=== PATIENT | male | born 1975 | race Caucasian/White ===

== ENCOUNTER 2023-02-09 02:02 | Inpatient (IN) | payer OTHER, SELFPAY ==
[2023-02-09] VITALS (57 sets, daily range): BP systolic 113–191; BP diastolic 64–94; PULSE 82–125; RESP 7–37; TEMP 36.1–40.1; O2SAT 91–99; BMI 41.1; BMI 42.4
[2023-02-09] MEDS: SODIUM CHLORIDE 0.9% 1,000 ML 1000 ML IV (02:46)
[2023-02-09] MEDS: ONDANSETRON 4 MG/2 ML INJ IV (02:46)
--- NOTE | 2023-02-09 02:51 | PC.NURSE ---
I asked patient if he knows what year it is, patient replied yes... it's...... 2025. I asked patient if he knows where he is, he states [email or web address] I asked him where are you at? He replies I dont know.
[2023-02-09 02:53] LABS: Add Manual Diff / Slide Review YES; Hematocrit 41.4 % (41-53); Hemoglobin 14.3 g/dL (13.5-17.5); Mean Corpuscular HGB Conc 34.6 % (30-36); Mean Corpuscular Hemoglobin 30.2 PG (26-34); Mean Corpuscular Volume 87.4 fL (80-100); Platelet Count 125 X10^3/uL (150-400); Red Blood Cell Count 4.73 X10^6/uL (4.5-5.9); Red Cell Distribution Width 13.5 % (11.6-14.8); White Blood Cell Count 14.3 X10^3/uL (4.5-11.0)
--- NOTE | 2023-02-09 02:55 | ED_ITS ---
HPI - Nausea/Vomiting/Diarrhea General Chief complaint: Nausea/Vomiting/Diarrhea Stated complaint: fever/vomiting/confusion Time Seen by Provider: 02/09/23 02:18 Source: patient and family Mode of arrival: Wheelchair History of Present Illness HPI Narrative: 47-year-old male nonsmoker without chronic medical history presents with his in the chief complaint of 1-2 days of worsening fever along with nausea, vomiting and now confusion tonight. They are visiting from [place] and denies any history of the same. He denies any headache, blurred vision, runny nose but did have some sore throat. He has no neck pain, chest pain or shortness of breath. He is had no cough. He denies abdominal pain but has had multiple episodes of nausea, vomiting and diarrhea. He denies recent antibiotics or exposure to bad food. states that it is not uncommon for him to vomit but confusion is something new. Related Data Home Medications Medication Instructions Recorded Confirmed venlafaxine 150 mg 150 mg PO DAILY 02/09/23 02/09/23 capsule,extended release 24 hr Allergies Allergy/AdvReac Type Severity Reaction Status Date / Time bupropion [From Wellbutrin] AdvReac Depression Verified 02/09/23 08:49 Penicillins AdvReac Nightmare Verified 02/09/23 08:54 Review of Systems Review of Systems Narrative: GENERAL: See HPI HEENT: See HPI RESPIRATORY: Denies dyspnea, cough, wheezing, hemoptysis, sputum. CARDIOVASCULAR: Denies chest pain, palpitations, orthopnea, edema, GASTROINTESTINAL: See HPI : Denies dysuria, frequency, incontinence, hematuria, urinary retention. MUSCULOSKELETAL: denies weakness, joint pain, or bony pain SKIN: Denies rash, skin lesions, or other NEUROLOGIC: Denies weakness, headache, numbness, change in speech, confusion, seizures, incoordination. PSYCHIATRIC: No concerning psychosocial issues. 12 point review of systems is negative except for those stated above Patient History Medical History Depression Family History Mother COVID Father No problems noted. Social History marital status: household members: spouse and children Smoking Status: Never smoker Smoking Status: Never smoker alcohol intake frequency: a few times a week Alcohol type: beer and wine Substance Use Type: does not use Exam Narrative Exam Narrative: GENERAL: [47] year old patient appears stated age. Well-developed patient, in mild distress. GCS 14 (confused) HEAD: Atraumatic. Normocephalic. EYES: Pupils equal round and reactive. Extraocular motions intact. No scleral icterus. No injection or drainage. ENT: Nose without bleeding, purulent drainage. Throat without erythema, tonsillar hypertrophy or exudate. Airway patent. NECK: Trachea midline. Non tender CARDIOVASCULAR: Tachycardic but regular rhythm without murmurs, gallops, or rubs. RESPIRATORY: Clear to auscultation. Breath sounds equal bilaterally. No wheezes, rales, or rhonchi. GASTROINTESTINAL: Abdomen soft, non-tender, nondistended. Bowel sounds present EXTREMITIES: No edema or joint tenderness. BACK: Nontender without deformity or crepitance. No flank tenderness. NEURO: Cranial nerves 2-12 grossly intact. SKIN: No rash or erythema of visible areas Initial Vital Signs Initial Vital Signs: Vital Signs Temperature 101.8 F H 02/09/23 02:17 Pulse Rate 113 H 02/09/23 02:17 Respiratory Rate 20 02/09/23 02:17 Blood Pressure 139/76 02/09/23 02:17 Pulse Oximetry 96 02/09/23 02:17 Oxygen Delivery Method Room Air 02/09/23 02:17 Course Orders Ordered: Discontinued Medications Acetaminophen (Acetaminophen 325 Mg Tablet) 975 mg PO Q6H PRN PRN Reason: Fever/Mild Pain (1-3) Last Admin: 02/10/23 03:20 Dose: 975 mg Documented By: Admin: 02/09/23 11:06 Dose: 975 mg Documented By: HILLARY Hydrocodone Bitart/Acetaminophen (Hydrocodone/Acet 5/325 Tablet) 2 tab PO Q4H PRN PRN Reason: Pain, Severe (5-10) Last Admin: 02/09/23 15:49 Dose: 2 tab Documented By: TYESHA Hydrocodone Bitart/Acetaminophen (Hydrocodone/Acet 5/325 Tablet) 1 tab PO Q4HR PRN PRN Reason: Pain, Moderate (4-6) Last Admin: 02/10/23 11:46 Dose: 1 tab Documented By: Admin: 02/09/23 23:00 Dose: 1 tab Documented By: TRUE Dextrose (Dextrose 50 % In Water 25 Gm/50 Ml Syringe) 25 gm IV PRN PRN PRN Reason: Hypoglycemia Enoxaparin Sodium (Enoxaparin 40 Mg/0.4 Ml Syringe) 40 mg SUBCUT DAILY [facility] Enoxaparin Sodium (Enoxaparin 40 Mg/0.4 Ml Syringe) 40 mg SUBCUT BID [facility] Last Admin: 02/10/23 09:04 Dose: 40 mg Documented By: Admin: 02/09/23 21:06 Dose: 40 mg Documented By: Admin: 02/09/23 09:06 Dose: 40 mg Documented By: LEV Hydromorphone HCl (Hydromorphone 0.5 Mg Inj) 0.5 mg IV Q4HR [facility] Last Admin: 02/09/23 12:45 Dose: Not Given Documented By: Admin: 02/09/23 09:07 Dose: Not Given Documented By: LEV Hydromorphone HCl (Hydromorphone 2 Mg Tablet) 2 mg PO Q3H PRN PRN Reason: Pain, Severe (7-10) Last Admin: 02/10/23 12:09 Dose: 2 mg Documented By: TYESHA Sodium Chloride (Normal Saline 0.9%) 1,000 mls @ 1,000 mls/hr IV BOLUS ONE Stop: 02/09/23 03:38 Last Infusion: 02/09/23 03:44 Dose: 0 mls/hr Documented By: Admin: 02/09/23 02:46 Dose: 1,000 mls/hr Documented By: ARNAUD Sodium Chloride (Normal Saline 0.9%) 2,259 mls @ 753 mls/hr 30 ml/kg infuse over 3 hr (2259 ml) IV NOW ONE Stop: 02/09/23 05:51 Last Infusion: 02/09/23 06:00 Dose: 0 mls/hr Documented By: Admin: 02/09/23 03:06 Dose: 753 mls/hr Documented By: ARNAUD Ceftriaxone Sodium 2,000 mg/ (Sodium Chloride) 100 mls @ 200 mls/hr IV NOW ONE Stop: 02/09/23 03:30 Last Infusion: 02/09/23 04:05 Dose: 0 mls/hr Documented By: Admin: 02/09/23 03:43 Dose: 200 mls/hr Documented By: GC Sodium Chloride (Normal Saline 0.9%) 1,000 mls @ 150 mls/hr IV CONT [facility] Last Admin: 02/10/23 03:20 Dose: 150 mls/hr Documented By: Infusion: 02/10/23 03:20 Dose: 150 mls/hr Documented By: Admin: 02/09/23 20:52 Dose: 150 mls/hr Documented By: Infusion: 02/09/23 20:48 Dose: 150 mls/hr Documented By: Admin: 02/09/23 14:07 Dose: 150 mls/hr Documented By: Infusion: 02/09/23 13:12 Dose: 150 mls/hr Documented By: Admin: 02/09/23 06:31 Dose: 150 mls/hr Documented By: GC Piperacillin Sod/Tazobactam (Sod 4.5 gm/ Sodium Chloride) 100 mls @ 200 mls/hr IV NOW ONE Stop: 02/09/23 08:01 Last Infusion: 02/09/23 09:39 Dose: 0 mls/hr Documented By: Admin: 02/09/23 08:54 Dose: 200 mls/hr Documented By: LEV Piperacillin Sod/Tazobactam (Sod 3.375 gm/ Sodium Chloride) 100 mls @ 25 mls/hr IV Q8H [facility] Last Admin: 02/09/23 11:05 Dose: 25 mls/hr Documented By: HILLARY Ceftriaxone Sodium 2,000 mg/ (Sodium Chloride) 100 mls @ 200 mls/hr IV Q24H [facility] Last Admin: 02/10/23 05:00 Dose: 200 mls/hr Documented By: TRUE Vancomycin HCl 3,000 mg/ (Sodium Chloride) 500 mls @ 166.667 mls/hr IV NOW ONE Stop: 02/09/23 14:59 Last Infusion: 02/09/23 15:27 Dose: 0 mls/hr Documented By: Admin: 02/09/23 12:19 Dose: 166.667 mls/hr Documented By: TYESHA Vancomycin HCl/Dextrose (Vancomycin) 1,500 mg in 300 mls @ 200 mls/hr IV Q12H [facility] Last Infusion: 02/10/23 05:00 Dose: 0 mls/hr Documented By: Admin: 02/10/23 00:29 Dose: 200 mls/hr Documented By: TRUE Insulin Human Lispro (Insulin Lispro 100 Unit/Ml 3ml Vial) 0 unit SUBCUT [facility]; Protocol Last Admin: 02/10/23 16:46 Dose: Not Given Documented By: Admin: 02/10/23 12:01 Dose: Not Given Documented By: Admin: 02/10/23 07:45 Dose: Not Given Documented By: Admin: 02/09/23 21:03 Dose: Not Given Documented By: Admin: 02/09/23 17:14 Dose: Not Given Documented By: Admin: 02/09/23 12:42 Dose: Not Given Documented By: Admin: 02/09/23 08:54 Dose: 1 unit Documented By: LEV Co-signed By: SIMON Ketorolac Tromethamine (Ketorolac 30 Mg/Ml Vial) 15 mg IV NOW ONE Stop: 02/09/23 02:53 Last Admin: 02/09/23 03:04 Dose: 15 mg Documented By: ARNAUD Ketorolac Tromethamine (Ketorolac 10 Mg Tablet) 10 mg PO Q6HR PRN PRN Reason: Pain, Mild (1-3) Stop: 02/14/23 05:52 Lidocaine HCl (Lidocaine 1% (Pf) 5 Ml) 4 ml INJ NOW ONE Stop: 02/10/23 15:35 Last Admin: 02/10/23 16:05 Dose: 4 ml Documented By: TYESHA Lidocaine/Epinephrine (Lidocaine 1% W/Epi) 4 ml INJ INTRA-OP ONE Stop: 02/10/23 15:32 Last Admin: 02/10/23 15:58 Dose: Not Given Documented By: TYESHA Magnesium Chloride (Magnesium Chloride 64 Mg Tablet) 128 mg PO NOW ONE Stop: 02/09/23 08:46 Last Admin: 02/09/23 09:05 Dose: 128 mg Documented By: LEV Naloxone HCl (Naloxone 0.4 Mg/Ml Vial) 0.2 mg IV Q2MIN PRN PRN Reason: Opiate Reversal Ondansetron HCl (Ondansetron 4 Mg/2 Ml Inj) 4 mg IV NOW ONE Stop: 02/09/23 02:40 Last Admin: 02/09/23 02:46 Dose: 4 mg Documented By: ARNAUD Ondansetron HCl (Ondansetron 4 Mg/2 Ml Inj) 4 mg IV Q4HR PRN PRN Reason: Nausea And Vomiting Potassium Chloride (Potassium Chloride 20 Meq Tab) 40 meq PO NOW ONE Stop: 02/10/23 08:16 Last Admin: 02/10/23 09:04 Dose: 40 meq Documented By: TYESHA Sertraline HCl (Sertraline 50 Mg Tablet) 150 mg PO DAILY [facility] Vancomycin HCl (Vancomycin Per Pharmacy) 1 request MISC NOW ONE Stop: 02/09/23 11:42 Venlafaxine HCl (Venlafaxine Er 75 Mg Cap) 150 mg PO DAILY [facility] Last Admin: 02/10/23 09:04 Dose: 150 mg Documented By: Admin: 02/09/23 09:07 Dose: 150 mg Documented By: LEV Vital Signs Vital signs: Vital Signs - 8 hr 02/09/23 02:17 02/09/23 02:35 02/09/23 02:35 Temperature 101.8 F H 104.1 F H Pulse Rate 113 H 101 H Respiratory Rate 20 16 Blood Pressure 139/76 136/82 Pulse Oximetry 96 98 Oxygen Delivery Method Room Air 02/09/23 03:04 02/09/23 03:00 02/09/23 03:12 Temperature 104.1 F H Pulse Rate 110 H Respiratory Rate 19 Blood Pressure 125/74 Pulse Oximetry 98 Oxygen Delivery Method 02/09/23 03:12 02/09/23 03:30 02/09/23 03:30 Temperature Pulse Rate 108 H 108 H Respiratory Rate 20 26 H Blood Pressure 123/85 Pulse Oximetry 99 98 Oxygen Delivery Method 02/09/23 04:00 Temperature Pulse Rate 111 H Respiratory Rate 22 Blood Pressure Pulse Oximetry 96 Oxygen Delivery Method MDM - Nausea/Vomiting/Diarrhea Lab Data 02/10/23 04:31 02/10/23 04:31 Labs: Lab Results 02/09/23 02/09/23 02/09/23 Range/Units 02:35 02:35 02:35 WBC 14.3 H (4.5-11.0) X10^3/uL RBC 4.73 (4.5-5.9) X10^6/uL Hgb 14.3 (13.5-17.5) g/dL Hct 41.4 (41-53) % MCV 87.4 (80-100) fL MCH 30.2 (26-34) PG MCHC 34.6 (30-36) % RDW 13.5 (11.6-14.8) % Plt Count 125 L (150-400) X10^3/uL Neut % (Auto) Not Reportable Lymph % (Auto) Not Reportable Wilkinson % (Auto) Not Reportable Eos % (Auto) Not Reportable Baso % (Auto) Not Reportable Lymph # (Auto) Not Reportable Wilkinson # (Auto) Not Reportable Baso # (Auto) Not Reportable Total Counted 100 Seg Neutrophils % 60.0 (38-70) % Band Neutrophils % 32.0 H (3-7) % Lymphocytes % (Manual) 1.0 L (25-45) % Monocytes % (Manual) 4.0 (2-11) % Metamyelocytes % 1.0 H (-0) % Myelocytes % 2.0 H (-0) % Neutrophils # (Manual) 11149 H (2320-1578) /uL RBC Morphology Normal morphology ESR (0-15) MM/HR PT (10.1-12.7) SECONDS INR (0.9-1.3) Sodium 126 L (137-145) mmol/L Potassium 3.8 (3.4-5.1) mmol/L Chloride 88 L (98-107) mmol/L Carbon Dioxide 26 (22-32) mmol/L BUN 24 H (9-20) mg/dL Creatinine 1.21 (0.66-1.25) mg/dL Estimated GFR > 60 (>60) mL/min BUN/Creatinine Ratio 19.8 (6-22) Glucose 183 H (70-100) mg/dL Hgb A1c (Ref Lab) (4.8-5.6) % Estim Average Glucose (.) mg/dL Lactate 3.0 H (0.7-2.1) mmol/L Calcium 8.6 (8.4-10.2) mg/dL Magnesium (1.6-2.3) mg/dL Total Bilirubin 1.2 (0.2-1.3) mg/dL AST 38 (17-59) IU/L ALT 34 (<50) IU/L Alkaline Phosphatase 59 (38-126) U/L C-Reactive Protein (<1.0) mg/dL Total Protein 8.0 (6.3-8.2) g/dL Albumin 4.2 (3.5-5.0) g/dL Globulin 3.8 (1.7-4.1) g/dL Albumin/Globulin Ratio 1.1 (1.0-2.8) Urine RBC (0-5/HPF) Urine WBC (0-5/HPF) Amorphous Sediment Urine Bacteria (None) Granular Casts (None) Micro UA Comment CSF Tube Number CSF Volume CSF Appearance (Clear) CSF Color (Colorless) CSF WBC (0-5) MONO/uL CSF RBC RBC /uL CSF Mononuclear WBCs % CSF Polynuclear WBCs % CSF Glucose (40-70) mg/dL CSF Total Protein (12-60) mg/dL CSF C.neoform/gat PCR (Not Detect) CSF CMV DNA (PCR) (Not Detect) CSF Enterovirus (PCR) (Not Detect) CSF E. coli (PCR) (Not Detect) CSF H. influenzae (PCR) (Not Detect) CSF HSV I (PCR) (Not Detect) CSF HSV II (PCR) (Not Detect) CSF HHV 6 (PCR) (Not Detect) CSF L.monocytogenes PCR (Not Detect) CSF N. meningitidis PCR (Not Detect) CSF Parechovirus (PCR) (Not Detect) CSF S. agalactiae (PCR) (Not Detect) CSF S. pneumoniae (PCR) (Not Detect) CSF VZV (PCR) (Not Detecte) U Opiates 300ng/mL cut (Negative) Ur Oxycodone Screen (Negative) Urine Methadone Screen (Negative) Ur Barbiturates Screen (Negative) U Tricyclic Antidepress (Negative) Ur Phencyclidine Scrn (Negative) Ur Amphetamines Screen (Negative) U Methamphetamines Scrn (Negative) Ur MDMA Scrn (Ecstasy) (Negative) U Benzodiazepines Scrn (Negative) Urine Cocaine Screen (Negative) U Marijuana (THC) Screen (Negative) Ethyl Alcohol ( - 10) mg/dL A.calcoaceticus-baumannii cmplx PCR (Not Detect) Chlamy pneumoniae PCR (Not Detect) Adenovirus (PCR) (Not Detect) Bacteroides fragilis (Not Detect) B. pertussis DNA (PCR) (Not Detecte) B.parapertussis DNA PCR (Not Detecte) Meaghan albicans (PCR) (Not Detect) Meaghan auris (PCR) (Not Detect) C. glabrata (PCR) (Not Detect) C. krusei (PCR) (Not Detect) C. parapsilosis (PCR) (Not Detect) C. tropicalis (PCR) (Not Detect) Coronavirus OC43 (PCR) (Not Detect) Coronavirus HKU1 (PCR) (Not Detect) Coronavirus 229E (PCR) (Not Detect) SARS-CoV-2 (PCR) (Not Detecte) Coronavirus NL63 (PCR) (Not Detect) C. neoform/gattii (PCR) (Not Detect) Enterobacterales (PCR) (Not Detect) E. cloacae complex PCR (Not Detect) Enterococc faecalis PCR (Not Detect) Enterococc faecium PCR (Not Detect) E. coli (PCR) (Not Detect) H. influenzae (PCR) (Not Detect) Human Metapneumovir PCR (Not Detect) Influenza Type A (PCR) (Not Detect) Influenza Type B (PCR) (Not Detect) Klebsiella aerogenes (PCR) (Not Detect) Klebsiella oxytoca PCR (Not Detect) Klebsiella pneumoniae (Not Detect) List. monocytogenes PCR (Not Detect) M. pneumoniae (PCR) (Not Detect) N. meningitidis (PCR) (Not Detect) Parainfluenza 1 (PCR) (Not Detect) Parainfluenza 2 (PCR) (Not Detect) Parainfluenza 3 (PCR) (Not Detect) Parainfluenza 4 (PCR) (Not Detect) Proteus species (PCR) (Not Detect) RSV (PCR) (Not Detect) Entero/Rhino (PCR) (Not Detect) Salmonella spp. (PCR) (Not Detect) Serratia marcescens PCR (Not Detect) Staphylococcus sp PCR (Not Detect) Staph aureus (PCR) (Not Detect) Staph epidermidis (PCR) (Not Detect) Staph lugdunensis PCR (Not Detect) S. maltophilia (PCR) (Not Detect) Streptococcus sp PCR (Not Detect) Group A Strep (PCR) (Not Detect) Strep agalactiae (PCR) (Not Detect) Strep pneumoniae (PCR) (Not Detect) P. aeruginosa (PCR) (Not Detect) 02/09/23 02/09/23 02/09/23 Range/Units 02:35 02:35 02:35 WBC (4.5-11.0) X10^3/uL RBC (4.5-5.9) X10^6/uL Hgb (13.5-17.5) g/dL Hct (41-53) % MCV (80-100) fL MCH (26-34) PG MCHC (30-36) % RDW (11.6-14.8) % Plt Count (150-400) X10^3/uL Neut % (Auto) Lymph % (Auto) Wilkinson % (Auto) Eos % (Auto) Baso % (Auto) Lymph # (Auto) Wilkinson # (Auto) Baso # (Auto) Total Counted Seg Neutrophils % (38-70) % Band Neutrophils % (3-7) % Lymphocytes % (Manual) (25-45) % Monocytes % (Manual) (2-11) % Metamyelocytes % (-0) % Myelocytes % (-0) % Neutrophils # (Manual) (6346-1987) /uL RBC Morphology ESR (0-15) MM/HR PT (10.1-12.7) SECONDS INR (0.9-1.3) Sodium (137-145) mmol/L Potassium (3.4-5.1) mmol/L Chloride (98-107) mmol/L Carbon Dioxide (22-32) mmol/L BUN (9-20) mg/dL Creatinine (0.66-1.25) mg/dL Estimated GFR (>60) mL/min BUN/Creatinine Ratio (6-22) Glucose (70-100) mg/dL Hgb A1c (Ref Lab) 5.9 H (4.8-5.6) % Estim Average Glucose 123 (.) mg/dL Lactate (0.7-2.1) mmol/L Calcium (8.4-10.2) mg/dL Magnesium (1.6-2.3) mg/dL Total Bilirubin (0.2-1.3) mg/dL AST (17-59) IU/L ALT (<50) IU/L Alkaline Phosphatase (38-126) U/L C-Reactive Protein 42.9 H (<1.0) mg/dL Total Protein (6.3-8.2) g/dL Albumin (3.5-5.0) g/dL Globulin (1.7-4.1) g/dL Albumin/Globulin Ratio (1.0-2.8) Urine RBC (0-5/HPF) Urine WBC (0-5/HPF) Amorphous Sediment Urine Bacteria (None) Granular Casts (None) Micro UA Comment CSF Tube Number CSF Volume CSF Appearance (Clear) CSF Color (Colorless) CSF WBC (0-5) MONO/uL CSF RBC RBC /uL CSF Mononuclear WBCs % CSF Polynuclear WBCs % CSF Glucose (40-70) mg/dL CSF Total Protein (12-60) mg/dL CSF C.neoform/gat PCR (Not Detect) CSF CMV DNA (PCR) (Not Detect) CSF Enterovirus (PCR) (Not Detect) CSF E. coli (PCR) (Not Detect) CSF H. influenzae (PCR) (Not Detect) CSF HSV I (PCR) (Not Detect) CSF HSV II (PCR) (Not Detect) CSF HHV 6 (PCR) (Not Detect) CSF L.monocytogenes PCR (Not Detect) CSF N. meningitidis PCR (Not Detect) CSF Parechovirus (PCR) (Not Detect) CSF S. agalactiae (PCR) (Not Detect) CSF S. pneumoniae (PCR) (Not Detect) CSF VZV (PCR) (Not Detecte) U Opiates 300ng/mL cut (Negative) Ur Oxycodone Screen (Negative) Urine Methadone Screen (Negative) Ur Barbiturates Screen (Negative) U Tricyclic Antidepress (Negative) Ur Phencyclidine Scrn (Negative) Ur Amphetamines Screen (Negative) U Methamphetamines Scrn (Negative) Ur MDMA Scrn (Ecstasy) (Negative) U Benzodiazepines Scrn (Negative) Urine Cocaine Screen (Negative) U Marijuana (THC) Screen (Negative) Ethyl Alcohol < 10 ( - 10) mg/dL A.calcoaceticus-baumannii cmplx PCR (Not Detect) Chlamy pneumoniae PCR (Not Detect) Adenovirus (PCR) (Not Detect) Bacteroides fragilis (Not Detect) B. pertussis DNA (PCR) (Not Detecte) B.parapertussis DNA PCR (Not Detecte) Meaghan albicans (PCR) (Not Detect) Meaghan auris (PCR) (Not Detect) C. glabrata (PCR) (Not Detect) C. krusei (PCR) (Not Detect) C. parapsilosis (PCR) (Not Detect) C. tropicalis (PCR) (Not Detect) Coronavirus OC43 (PCR) (Not Detect) Coronavirus HKU1 (PCR) (Not Detect) Coronavirus 229E (PCR) (Not Detect) SARS-CoV-2 (PCR) (Not Detecte) Coronavirus NL63 (PCR) (Not Detect) C. neoform/gattii (PCR) (Not Detect) Enterobacterales (PCR) (Not Detect) E. cloacae complex PCR (Not Detect) Enterococc faecalis PCR (Not Detect) Enterococc faecium PCR (Not Detect) E. coli (PCR) (Not Detect) H. influenzae (PCR) (Not Detect) Human Metapneumovir PCR (Not Detect) Influenza Type A (PCR) (Not Detect) Influenza Type B (PCR) (Not Detect) Klebsiella aerogenes (PCR) (Not Detect) Klebsiella oxytoca PCR (Not Detect) Klebsiella pneumoniae (Not Detect) List. monocytogenes PCR (Not Detect) M. pneumoniae (PCR) (Not Detect) N. meningitidis (PCR) (Not Detect) Parainfluenza 1 (PCR) (Not Detect) Parainfluenza 2 (PCR) (Not Detect) Parainfluenza 3 (PCR) (Not Detect) Parainfluenza 4 (PCR) (Not Detect) Proteus species (PCR) (Not Detect) RSV (PCR) (Not Detect) Entero/Rhino (PCR) (Not Detect) Salmonella spp. (PCR) (Not Detect) Serratia marcescens PCR (Not Detect) Staphylococcus sp PCR (Not Detect) Staph aureus (PCR) (Not Detect) Staph epidermidis (PCR) (Not Detect) Staph lugdunensis PCR (Not Detect) S. maltophilia (PCR) (Not Detect) Streptococcus sp PCR (Not Detect) Group A Strep (PCR) (Not Detect) Strep agalactiae (PCR) (Not Detect) Strep pneumoniae (PCR) (Not Detect) P. aeruginosa (PCR) (Not Detect) 02/09/23 02/09/23 02/09/23 Range/Units 02:35 02:35 02:35 WBC (4.5-11.0) X10^3/uL RBC (4.5-5.9) X10^6/uL Hgb (13.5-17.5) g/dL Hct (41-53) % MCV (80-100) fL MCH (26-34) PG MCHC (30-36) % RDW (11.6-14.8) % Plt Count (150-400) X10^3/uL Neut % (Auto) Lymph % (Auto) Wilkinson % (Auto) Eos % (Auto) Baso % (Auto) Lymph # (Auto) Wilkinson # (Auto) Baso # (Auto) Total Counted Seg Neutrophils % (38-70) % Band Neutrophils % (3-7) % Lymphocytes % (Manual) (25-45) % Monocytes % (Manual) (2-11) % Metamyelocytes % (-0) % Myelocytes % (-0) % Neutrophils # (Manual) ([id number]) /uL RBC Morphology ESR (0-15) MM/HR PT 17.2 H (10.1-12.7) SECONDS INR 1.5 H (0.9-1.3) Sodium (137-145) mmol/L Potassium (3.4-5.1) mmol/L Chloride (98-107) mmol/L Carbon Dioxide (22-32) mmol/L BUN (9-20) mg/dL Creatinine (0.66-1.25) mg/dL Estimated GFR (>60) mL/min BUN/Creatinine Ratio (6-22) Glucose (70-100) mg/dL Hgb A1c (Ref Lab) (4.8-5.6) % Estim Average Glucose (.) mg/dL Lactate (0.7-2.1) mmol/L Calcium (8.4-10.2) mg/dL Magnesium 1.6 (1.6-2.3) mg/dL Total Bilirubin (0.2-1.3) mg/dL AST (17-59) IU/L ALT (<50) IU/L Alkaline Phosphatase (38-126) U/L C-Reactive Protein (<1.0) mg/dL Total Protein (6.3-8.2) g/dL Albumin (3.5-5.0) g/dL Globulin (1.7-4.1) g/dL Albumin/Globulin Ratio (1.0-2.8) Urine RBC (0-5/HPF) Urine WBC (0-5/HPF) Amorphous Sediment Urine Bacteria (None) Granular Casts (None) Micro UA Comment CSF Tube Number CSF Volume CSF Appearance (Clear) CSF Color (Colorless) CSF WBC (0-5) MONO/uL CSF RBC RBC /uL CSF Mononuclear WBCs % CSF Polynuclear WBCs % CSF Glucose (40-70) mg/dL CSF Total Protein (12-60) mg/dL CSF C.neoform/gat PCR (Not Detect) CSF CMV DNA (PCR) (Not Detect) CSF Enterovirus (PCR) (Not Detect) CSF E. coli (PCR) (Not Detect) CSF H. influenzae (PCR) (Not Detect) CSF HSV I (PCR) (Not Detect) CSF HSV II (PCR) (Not Detect) CSF HHV 6 (PCR) (Not Detect) CSF L.monocytogenes PCR (Not Detect) CSF N. meningitidis PCR (Not Detect) CSF Parechovirus (PCR) (Not Detect) CSF S. agalactiae (PCR) (Not Detect) CSF S. pneumoniae (PCR) (Not Detect) CSF VZV (PCR) (Not Detecte) U Opiates 300ng/mL cut (Negative) Ur Oxycodone Screen (Negative) Urine Methadone Screen (Negative) Ur Barbiturates Screen (Negative) U Tricyclic Antidepress (Negative) Ur Phencyclidine Scrn (Negative) Ur Amphetamines Screen (Negative) U Methamphetamines Scrn (Negative) Ur MDMA Scrn (Ecstasy) (Negative) U Benzodiazepines Scrn (Negative) Urine Cocaine Screen (Negative) U Marijuana (THC) Screen (Negative) Ethyl Alcohol ( - 10) mg/dL A.calcoaceticus-baumannii cmplx PCR Not detected (Not Detect) Chlamy pneumoniae PCR (Not Detect) Adenovirus (PCR) (Not Detect) Bacteroides fragilis Not detected (Not Detect) B. pertussis DNA (PCR) (Not Detecte) B.parapertussis DNA PCR (Not Detecte) Meaghan albicans (PCR) Not detected (Not Detect) Meaghan auris (PCR) Not detected (Not Detect) C. glabrata (PCR) Not detected (Not Detect) C. krusei (PCR) Not detected (Not Detect) C. parapsilosis (PCR) Not detected (Not Detect) C. tropicalis (PCR) Not detected (Not Detect) Coronavirus OC43 (PCR) (Not Detect) Coronavirus HKU1 (PCR) (Not Detect) Coronavirus 229E (PCR) (Not Detect) SARS-CoV-2 (PCR) (Not Detecte) Coronavirus NL63 (PCR) (Not Detect) C. neoform/gattii (PCR) Not detected (Not Detect) Enterobacterales (PCR) Not detected (Not Detect) E. cloacae complex PCR Not detected (Not Detect) Enterococc faecalis PCR Not detected (Not Detect) Enterococc faecium PCR Not detected (Not Detect) E. coli (PCR) Not detected (Not Detect) H. influenzae (PCR) Not detected (Not Detect) Human Metapneumovir PCR (Not Detect) Influenza Type A (PCR) (Not Detect) Influenza Type B (PCR) (Not Detect) Klebsiella aerogenes (PCR) Not detected (Not Detect) Klebsiella oxytoca PCR Not detected (Not Detect) Klebsiella pneumoniae Not detected (Not Detect) List. monocytogenes PCR Not detected (Not Detect) M. pneumoniae (PCR) (Not Detect) N. meningitidis (PCR) Not detected (Not Detect) Parainfluenza 1 (PCR) (Not Detect) Parainfluenza 2 (PCR) (Not Detect) Parainfluenza 3 (PCR) (Not Detect) Parainfluenza 4 (PCR) (Not Detect) Proteus species (PCR) Not detected (Not Detect) RSV (PCR) (Not Detect) Entero/Rhino (PCR) (Not Detect) Salmonella spp. (PCR) Not detected (Not Detect) Serratia marcescens PCR Not detected (Not Detect) Staphylococcus sp PCR Not detected (Not Detect) Staph aureus (PCR) Not detected (Not Detect) Staph epidermidis (PCR) Not detected (Not Detect) Staph lugdunensis PCR Not detected (Not Detect) S. maltophilia (PCR) Not detected (Not Detect) Streptococcus sp PCR Detected H (Not Detect) Group A Strep (PCR) Detected H (Not Detect) Strep agalactiae (PCR) Not detected (Not Detect) Strep pneumoniae (PCR) Not detected (Not Detect) P. aeruginosa (PCR) Not detected (Not Detect) 02/09/23 02/09/23 02/09/23 Range/Units 03:05 03:22 03:22 WBC (4.5-11.0) X10^3/uL RBC (4.5-5.9) X10^6/uL Hgb (13.5-17.5) g/dL Hct (41-53) % MCV (80-100) fL MCH (26-34) PG MCHC (30-36) % RDW (11.6-14.8) % Plt Count (150-400) X10^3/uL Neut % (Auto) Lymph % (Auto) Wilkinson % (Auto) Eos % (Auto) Baso % (Auto) Lymph # (Auto) Wilkinson # (Auto) Baso # (Auto) Total Counted Seg Neutrophils % (38-70) % Band Neutrophils % (3-7) % Lymphocytes % (Manual) (25-45) % Monocytes % (Manual) (2-11) % Metamyelocytes % (-0) % Myelocytes % (-0) % Neutrophils # (Manual) (7657-8250) /uL RBC Morphology ESR (0-15) MM/HR PT (10.1-12.7) SECONDS INR (0.9-1.3) Sodium (137-145) mmol/L Potassium (3.4-5.1) mmol/L Chloride (98-107) mmol/L Carbon Dioxide (22-32) mmol/L BUN (9-20) mg/dL Creatinine (0.66-1.25) mg/dL Estimated GFR (>60) mL/min BUN/Creatinine Ratio (6-22) Glucose (70-100) mg/dL Hgb A1c (Ref Lab) (4.8-5.6) % Estim Average Glucose (.) mg/dL Lactate (0.7-2.1) mmol/L Calcium (8.4-10.2) mg/dL Magnesium (1.6-2.3) mg/dL Total Bilirubin (0.2-1.3) mg/dL AST (17-59) IU/L ALT (<50) IU/L Alkaline Phosphatase (38-126) U/L C-Reactive Protein (<1.0) mg/dL Total Protein (6.3-8.2) g/dL Albumin (3.5-5.0) g/dL Globulin (1.7-4.1) g/dL Albumin/Globulin Ratio (1.0-2.8) Urine RBC 0-1/hpf (0-5/HPF) Urine WBC None seen (0-5/HPF) Amorphous Sediment 3+ Urine Bacteria Occasional (0-1) (None) Granular Casts 1-5/lpf (None) Micro UA Comment * CSF Tube Number CSF Volume CSF Appearance (Clear) CSF Color (Colorless) CSF WBC (0-5) MONO/uL CSF RBC RBC /uL CSF Mononuclear WBCs % CSF Polynuclear WBCs % CSF Glucose (40-70) mg/dL CSF Total Protein (12-60) mg/dL CSF C.neoform/gat PCR (Not Detect) CSF CMV DNA (PCR) (Not Detect) CSF Enterovirus (PCR) (Not Detect) CSF E. coli (PCR) (Not Detect) CSF H. influenzae (PCR) (Not Detect) CSF HSV I (PCR) (Not Detect) CSF HSV II (PCR) (Not Detect) CSF HHV 6 (PCR) (Not Detect) CSF L.monocytogenes PCR (Not Detect) CSF N. meningitidis PCR (Not Detect) CSF Parechovirus (PCR) (Not Detect) CSF S. agalactiae (PCR) (Not Detect) CSF S. pneumoniae (PCR) (Not Detect) CSF VZV (PCR) (Not Detecte) U Opiates 300ng/mL cut Negative (Negative) Ur Oxycodone Screen Negative (Negative) Urine Methadone Screen Negative (Negative) Ur Barbiturates Screen Negative (Negative) U Tricyclic Antidepress Negative (Negative) Ur Phencyclidine Scrn Negative (Negative) Ur Amphetamines Screen Negative (Negative) U Methamphetamines Scrn Negative (Negative) Ur MDMA Scrn (Ecstasy) Negative (Negative) U Benzodiazepines Scrn Negative (Negative) Urine Cocaine Screen Negative (Negative) U Marijuana (THC) Screen Negative (Negative) Ethyl Alcohol ( - 10) mg/dL A.calcoaceticus-baumannii cmplx PCR (Not Detect) Chlamy pneumoniae PCR Not detected (Not Detect) Adenovirus (PCR) Not detected (Not Detect) Bacteroides fragilis (Not Detect) B. pertussis DNA (PCR) Not detected (Not Detecte) B.parapertussis DNA PCR Not detected (Not Detecte) Meaghan albicans (PCR) (Not Detect) Meaghan auris (PCR) (Not Detect) C. glabrata (PCR) (Not Detect) C. krusei (PCR) (Not Detect) C. parapsilosis (PCR) (Not Detect) C. tropicalis (PCR) (Not Detect) Coronavirus OC43 (PCR) Not detected (Not Detect) Coronavirus HKU1 (PCR) Not detected (Not Detect) Coronavirus 229E (PCR) Not detected (Not Detect) SARS-CoV-2 (PCR) Not detected (Not Detecte) Coronavirus NL63 (PCR) Not detected (Not Detect) C. neoform/gattii (PCR) (Not Detect) Enterobacterales (PCR) (Not Detect) E. cloacae complex PCR (Not Detect) Enterococc faecalis PCR (Not Detect) Enterococc faecium PCR (Not Detect) E. coli (PCR) (Not Detect) H. influenzae (PCR) (Not Detect) Human Metapneumovir PCR Not detected (Not Detect) Influenza Type A (PCR) Not detected (Not Detect) Influenza Type B (PCR) Not detected (Not Detect) Klebsiella aerogenes (PCR) (Not Detect) Klebsiella oxytoca PCR (Not Detect) Klebsiella pneumoniae (Not Detect) List. monocytogenes PCR (Not Detect) M. pneumoniae (PCR) Not detected (Not Detect) N. meningitidis (PCR) (Not Detect) Parainfluenza 1 (PCR) Not detected (Not Detect) Parainfluenza 2 (PCR) Not detected (Not Detect) Parainfluenza 3 (PCR) Not detected (Not Detect) Parainfluenza 4 (PCR) Not detected (Not Detect) Proteus species (PCR) (Not Detect) RSV (PCR) Not detected (Not Detect) Entero/Rhino (PCR) Not detected (Not Detect) Salmonella spp. (PCR) (Not Detect) Serratia marcescens PCR (Not Detect) Staphylococcus sp PCR (Not Detect) Staph aureus (PCR) (Not Detect) Staph epidermidis (PCR) (Not Detect) Staph lugdunensis PCR (Not Detect) S. maltophilia (PCR) (Not Detect) Streptococcus sp PCR (Not Detect) Group A Strep (PCR) (Not Detect) Strep agalactiae (PCR) (Not Detect) Strep pneumoniae (PCR) (Not Detect) P. aeruginosa (PCR) (Not Detect) 02/09/23 02/09/23 02/09/23 Range/Units 04:53 05:20 05:20 WBC (4.5-11.0) X10^3/uL RBC (4.5-5.9) X10^6/uL Hgb (13.5-17.5) g/dL Hct (41-53) % MCV (80-100) fL MCH (26-34) PG MCHC (30-36) % RDW (11.6-14.8) % Plt Count (150-400) X10^3/uL Neut % (Auto) Lymph % (Auto) Wilkinson % (Auto) Eos % (Auto) Baso % (Auto) Lymph # (Auto) Wilkinson # (Auto) Baso # (Auto) Total Counted Seg Neutrophils % (38-70) % Band Neutrophils % (3-7) % Lymphocytes % (Manual) (25-45) % Monocytes % (Manual) (2-11) % Metamyelocytes % (-0) % Myelocytes % (-0) % Neutrophils # (Manual) (7636-2273) /uL RBC Morphology ESR (0-15) MM/HR PT (10.1-12.7) SECONDS INR (0.9-1.3) Sodium (137-145) mmol/L Potassium (3.4-5.1) mmol/L Chloride (98-107) mmol/L Carbon Dioxide (22-32) mmol/L BUN (9-20) mg/dL Creatinine (0.66-1.25) mg/dL Estimated GFR (>60) mL/min BUN/Creatinine Ratio (6-22) Glucose (70-100) mg/dL Hgb A1c (Ref Lab) (4.8-5.6) % Estim Average Glucose (.) mg/dL Lactate 1.6 (0.7-2.1) mmol/L Calcium (8.4-10.2) mg/dL Magnesium (1.6-2.3) mg/dL Total Bilirubin (0.2-1.3) mg/dL AST (17-59) IU/L ALT (<50) IU/L Alkaline Phosphatase (38-126) U/L C-Reactive Protein (<1.0) mg/dL Total Protein (6.3-8.2) g/dL Albumin (3.5-5.0) g/dL Globulin (1.7-4.1) g/dL Albumin/Globulin Ratio (1.0-2.8) Urine RBC (0-5/HPF) Urine WBC (0-5/HPF) Amorphous Sediment Urine Bacteria (None) Granular Casts (None) Micro UA Comment CSF Tube Number 2 CSF Volume 1.5 ml CSF Appearance Clear (Clear) CSF Color Colorless (Colorless) CSF WBC 9 H (0-5) MONO/uL CSF RBC 1 RBC /uL CSF Mononuclear WBCs 9 % CSF Polynuclear WBCs 1 % CSF Glucose 93 H (40-70) mg/dL CSF Total Protein 58 (12-60) mg/dL CSF C.neoform/gat PCR Not detected (Not Detect) CSF CMV DNA (PCR) Not detected (Not Detect) CSF Enterovirus (PCR) Not detected (Not Detect) CSF E. coli (PCR) Not detected (Not Detect) CSF H. influenzae (PCR) Not detected (Not Detect) CSF HSV I (PCR) Not detected (Not Detect) CSF HSV II (PCR) Not detected (Not Detect) CSF HHV 6 (PCR) Not detected (Not Detect) CSF L.monocytogenes PCR Not detected (Not Detect) CSF N. meningitidis PCR Not detected (Not Detect) CSF Parechovirus (PCR) Not detected (Not Detect) CSF S. agalactiae (PCR) Not detected (Not Detect) CSF S. pneumoniae (PCR) Not detected (Not Detect) CSF VZV (PCR) Not detected (Not Detecte) U Opiates 300ng/mL cut (Negative) Ur Oxycodone Screen (Negative) Urine Methadone Screen (Negative) Ur Barbiturates Screen (Negative) U Tricyclic Antidepress (Negative) Ur Phencyclidine Scrn (Negative) Ur Amphetamines Screen (Negative) U Methamphetamines Scrn (Negative) Ur MDMA Scrn (Ecstasy) (Negative) U Benzodiazepines Scrn (Negative) Urine Cocaine Screen (Negative) U Marijuana (THC) Screen (Negative) Ethyl Alcohol ( - 10) mg/dL A.calcoaceticus-baumannii cmplx PCR (Not Detect) Chlamy pneumoniae PCR (Not Detect) Adenovirus (PCR) (Not Detect) Bacteroides fragilis (Not Detect) B. pertussis DNA (PCR) (Not Detecte) B.parapertussis DNA PCR (Not Detecte) Meaghan albicans (PCR) (Not Detect) Meaghan auris (PCR) (Not Detect) C. glabrata (PCR) (Not Detect) C. krusei (PCR) (Not Detect) C. parapsilosis (PCR) (Not Detect) C. tropicalis (PCR) (Not Detect) Coronavirus OC43 (PCR) (Not Detect) Coronavirus HKU1 (PCR) (Not Detect) Coronavirus 229E (PCR) (Not Detect) SARS-CoV-2 (PCR) (Not Detecte) Coronavirus NL63 (PCR) (Not Detect) C. neoform/gattii (PCR) (Not Detect) Enterobacterales (PCR) (Not Detect) E. cloacae complex PCR (Not Detect) Enterococc faecalis PCR (Not Detect) Enterococc faecium PCR (Not Detect) E. coli (PCR) (Not Detect) H. influenzae (PCR) (Not Detect) Human Metapneumovir PCR (Not Detect) Influenza Type A (PCR) (Not Detect) Influenza Type B (PCR) (Not Detect) Klebsiella aerogenes (PCR) (Not Detect) Klebsiella oxytoca PCR (Not Detect) Klebsiella pneumoniae (Not Detect) List. monocytogenes PCR (Not Detect) M. pneumoniae (PCR) (Not Detect) N. meningitidis (PCR) (Not Detect) Parainfluenza 1 (PCR) (Not Detect) Parainfluenza 2 (PCR) (Not Detect) Parainfluenza 3 (PCR) (Not Detect) Parainfluenza 4 (PCR) (Not Detect) Proteus species (PCR) (Not Detect) RSV (PCR) (Not Detect) Entero/Rhino (PCR) (Not Detect) Salmonella spp. (PCR) (Not Detect) Serratia marcescens PCR (Not Detect) Staphylococcus sp PCR (Not Detect) Staph aureus (PCR) (Not Detect) Staph epidermidis (PCR) (Not Detect) Staph lugdunensis PCR (Not Detect) S. maltophilia (PCR) (Not Detect) Streptococcus sp PCR (Not Detect) Group A Strep (PCR) (Not Detect) Strep agalactiae (PCR) (Not Detect) Strep pneumoniae (PCR) (Not Detect) P. aeruginosa (PCR) (Not Detect) 02/09/23 Range/Units 05:46 WBC (4.5-11.0) X10^3/uL RBC (4.5-5.9) X10^6/uL Hgb (13.5-17.5) g/dL Hct (41-53) % MCV (80-100) fL MCH (26-34) PG MCHC (30-36) % RDW (11.6-14.8) % Plt Count (150-400) X10^3/uL Neut % (Auto) Lymph % (Auto) Wilkinson % (Auto) Eos % (Auto) Baso % (Auto) Lymph # (Auto) Wilkinson # (Auto) Baso # (Auto) Total Counted Seg Neutrophils % (38-70) % Band Neutrophils % (3-7) % Lymphocytes % (Manual) (25-45) % Monocytes % (Manual) (2-11) % Metamyelocytes % (-0) % Myelocytes % (-0) % Neutrophils # (Manual) (7973-5888) /uL RBC Morphology ESR 31 H (0-15) MM/HR PT (10.1-12.7) SECONDS INR (0.9-1.3) Sodium (137-145) mmol/L Potassium (3.4-5.1) mmol/L Chloride (98-107) mmol/L Carbon Dioxide (22-32) mmol/L BUN (9-20) mg/dL Creatinine (0.66-1.25) mg/dL Estimated GFR (>60) mL/min BUN/Creatinine Ratio (6-22) Glucose (70-100) mg/dL Hgb A1c (Ref Lab) (4.8-5.6) % Estim Average Glucose (.) mg/dL Lactate (0.7-2.1) mmol/L Calcium (8.4-10.2) mg/dL Magnesium (1.6-2.3) mg/dL Total Bilirubin (0.2-1.3) mg/dL AST (17-59) IU/L ALT (<50) IU/L Alkaline Phosphatase (38-126) U/L C-Reactive Protein (<1.0) mg/dL Total Protein (6.3-8.2) g/dL Albumin (3.5-5.0) g/dL Globulin (1.7-4.1) g/dL Albumin/Globulin Ratio (1.0-2.8) Urine RBC (0-5/HPF) Urine WBC (0-5/HPF) Amorphous Sediment Urine Bacteria (None) Granular Casts (None) Micro UA Comment CSF Tube Number CSF Volume CSF Appearance (Clear) CSF Color (Colorless) CSF WBC (0-5) MONO/uL CSF RBC RBC /uL CSF Mononuclear WBCs % CSF Polynuclear WBCs % CSF Glucose (40-70) mg/dL CSF Total Protein (12-60) mg/dL CSF C.neoform/gat PCR (Not Detect) CSF CMV DNA (PCR) (Not Detect) CSF Enterovirus (PCR) (Not Detect) CSF E. coli (PCR) (Not Detect) CSF H. influenzae (PCR) (Not Detect) CSF HSV I (PCR) (Not Detect) CSF HSV II (PCR) (Not Detect) CSF HHV 6 (PCR) (Not Detect) CSF L.monocytogenes PCR (Not Detect) CSF N. meningitidis PCR (Not Detect) CSF Parechovirus (PCR) (Not Detect) CSF S. agalactiae (PCR) (Not Detect) CSF S. pneumoniae (PCR) (Not Detect) CSF VZV (PCR) (Not Detecte) U Opiates 300ng/mL cut (Negative) Ur Oxycodone Screen (Negative) Urine Methadone Screen (Negative) Ur Barbiturates Screen (Negative) U Tricyclic Antidepress (Negative) Ur Phencyclidine Scrn (Negative) Ur Amphetamines Screen (Negative) U Methamphetamines Scrn (Negative) Ur MDMA Scrn (Ecstasy) (Negative) U Benzodiazepines Scrn (Negative) Urine Cocaine Screen (Negative) U Marijuana (THC) Screen (Negative) Ethyl Alcohol ( - 10) mg/dL A.calcoaceticus-baumannii cmplx PCR (Not Detect) Chlamy pneumoniae PCR (Not Detect) Adenovirus (PCR) (Not Detect) Bacteroides fragilis (Not Detect) B. pertussis DNA (PCR) (Not Detecte) B.parapertussis DNA PCR (Not Detecte) Meaghan albicans (PCR) (Not Detect) Meaghan auris (PCR) (Not Detect) C. glabrata (PCR) (Not Detect) C. krusei (PCR) (Not Detect) C. parapsilosis (PCR) (Not Detect) C. tropicalis (PCR) (Not Detect) Coronavirus OC43 (PCR) (Not Detect) Coronavirus HKU1 (PCR) (Not Detect) Coronavirus 229E (PCR) (Not Detect) SARS-CoV-2 (PCR) (Not Detecte) Coronavirus NL63 (PCR) (Not Detect) C. neoform/gattii (PCR) (Not Detect) Enterobacterales (PCR) (Not Detect) E. cloacae complex PCR (Not Detect) Enterococc faecalis PCR (Not Detect) Enterococc faecium PCR (Not Detect) E. coli (PCR) (Not Detect) H. influenzae (PCR) (Not Detect) Human Metapneumovir PCR (Not Detect) Influenza Type A (PCR) (Not Detect) Influenza Type B (PCR) (Not Detect) Klebsiella aerogenes (PCR) (Not Detect) Klebsiella oxytoca PCR (Not Detect) Klebsiella pneumoniae (Not Detect) List. monocytogenes PCR (Not Detect) M. pneumoniae (PCR) (Not Detect) N. meningitidis (PCR) (Not Detect) Parainfluenza 1 (PCR) (Not Detect) Parainfluenza 2 (PCR) (Not Detect) Parainfluenza 3 (PCR) (Not Detect) Parainfluenza 4 (PCR) (Not Detect) Proteus species (PCR) (Not Detect) RSV (PCR) (Not Detect) Entero/Rhino (PCR) (Not Detect) Salmonella spp. (PCR) (Not Detect) Serratia marcescens PCR (Not Detect) Staphylococcus sp PCR (Not Detect) Staph aureus (PCR) (Not Detect) Staph epidermidis (PCR) (Not Detect) Staph lugdunensis PCR (Not Detect) S. maltophilia (PCR) (Not Detect) Streptococcus sp PCR (Not Detect) Group A Strep (PCR) (Not Detect) Strep agalactiae (PCR) (Not Detect) Strep pneumoniae (PCR) (Not Detect) P. aeruginosa (PCR) (Not Detect) Point of Care Testing Glucose POC 138 Urine Dip Bedside Urine Glucose Negative Bedside Urine Bilirubin - Negative Bedside Urine Ketone + 15 Urine Specific [place] 1.030 Bedside Urine Occult Blood ++ Bedside Urine pH 6.0 Bedside Urine Protein ++ 100 Bedside Urine Urobilinogen - Negative Bedside Urine Nitrite - Negative Bedside Urine Leukocytes - Negative Esterase MDM Narrative Medical decision making narrative: CC: 47-year-old male with fever, nausea, vomiting, diarrhea and confusion Complicating co-morbidities: None known Data collected from: Patient and patient No prior notes in our EMR Differential considered, but not limited to: Flu, COVID, gastroenteritis, electrolyte abnormality, meningitis versus other Exam documented above, pertinent findings include: Alert, slightly confused, no meningeal signs, slightly tachycardic but regular, lungs clear, no evidence of labored breathing, abdomen soft and nontender Lab Test results independently reviewed as above. Pertinent findings: Independently reviewed EKG as above Imaging studies independently reviewed: CXR, Hand Xray without acute findings Consultations: Hospitalist happy to accept Treatments: flluids, ABX, tylenol Discharge Plan Departure Patient Disposition: Admitted As Inpatient Clinical Impression: Sepsis, Acute metabolic encephalopathy, Acute hyponatremia Admit Date/Time: 02/09/23 07:12 Admit Provider: Beth Cruz
[2023-02-09 02:59] LABS: Ethanol (ETOH) < 10 mg/dL
[2023-02-09 03:02] LABS: Alanine Aminotransferase 34 IU/L (<50); Albumin 4.2 g/dL (3.5-5.0); Albumin Globulin Ratio 1.1 (1.0-2.8); Alkaline Phosphatase 59 U/L (38-126); Aspartate Aminotransferase 38 IU/L (17-59); BUN Creatinine Ratio 19.8 (6-22); Bilirubin Total 1.2 mg/dL (0.2-1.3); Blood Urea Nitrogen 24 mg/dL (9-20); Calcium 8.6 mg/dL (8.4-10.2); Carbon Dioxide 26 mmol/L (22-32); Chloride 88 mmol/L (98-107); Estimated Glomerular Filt Rate > 60 mL/min (>60); Globulin 3.8 g/dL (1.7-4.1); Glucose 183 mg/dL (70-100); HEMOLYSIS < 15 (0-50); Potassium 3.8 mmol/L (3.4-5.1); Sodium 126 mmol/L (137-145)
[2023-02-09] MEDS: KETOROLAC 30 MG/ML VIAL 15 MG IV (03:04)
[2023-02-09] MEDS: SODIUM CHLORIDE 0.9% 2,259 ML 753 ML IV (03:06)
--- NOTE | 2023-02-09 03:28 | DI.RAD.S_ITS ---
PROCEDURE: XR CHEST 1V INDICATIONS: septic TECHNIQUE: One view of the chest was acquired. COMPARISON: None. FINDINGS: Surgical changes and devices: None. Multiple overlying EKG wires Lungs and pleura: There are low lung volumes resulting in crowding of the bronchovascular markings. There is mild basilar atelectasis. No focal consolidation. No pleural effusions or pneumothorax. Mediastinum: Mediastinal contours appear normal. Heart size is normal. Bones and chest wall: No suspicious bony lesions. Overlying soft tissues appear unremarkable. IMPRESSION: Hypoventilatory changes without focal consolidation. Agree with preliminary report. Dictated by: Elpidio Barron D.O. on 02/09/2023 at 7:34 Approved by: Elpidio Barron D.O. on 02/09/2023 at 7:36
--- NOTE | 2023-02-09 03:28 | DI.RAD.S_ITS ---
PROCEDURE: XR HAND LT MIN 3V INDICATIONS: fall with hand pain TECHNIQUE: 3 views of the hand(s) acquired. COMPARISON: None. FINDINGS: Ring was not removed from finger. Bones: No fractures or dislocations. There is mild joint space loss with osteophytosis of the 3rd metacarpophalangeal joint. Carpal bones are normally aligned. No suspicious bony lesions. Soft tissues: No suspicious soft tissue calcifications. IMPRESSION: No acute osseous abnormality. Degenerative changes of the 3rd metacarpophalangeal joint which may be posttraumatic given lack of other findings throughout the hand. No significant discrepancy for preliminary report. Dictated by: Elpidio Barron D.O. on 02/09/2023 at 7:37 Approved by: Elpidio Barron D.O. on 02/09/2023 at 7:40
[2023-02-09 03:37] LABS: Neutrophils Absolute Manual 13156 /uL (3000-5900); RBC Morphology Normal Morphology; Total Cells Counted 100
[2023-02-09] MEDS: cefTRIAXone 2,000 MG in SODIUM CHLORIDE 0.9% 100 ML 200 MG IV (03:43)
[2023-02-09 04:01] LABS: UR Morphine/Opiate cutoff 300 Negative (Negative); Ur Creatinine 50 (Normal); Ur Specific Gravity >1.030 (Normal); Urine Amphetamines Negative (Negative); Urine Barbiturates Negative (Negative); Urine Benzodiazepines Negative (Negative); Urine Cocaine Negative (Negative); Urine MDMA Negative (Negative); Urine Methadone Negative (Negative); Urine Methamphetamines Negative (Negative); Urine Oxycodone Negative (Negative); Urine Phencyclidine Negative (Negative); Urine Tetrahydrocannabinol Negative (Negative); Urine Tricyclic Antidepressant Negative (Negative); Urine pH 5..5 (Normal)
[2023-02-09 04:04] LABS: Adenovirus Not Detected (Not Detect); B. parapertussis Not Detected (Not Detecte); Bordetella pertussis Not Detected (Not Detecte); Chlamydophila pneumoniae Not Detected (Not Detect); Coronavirus 229E Not Detected (Not Detect); Coronavirus HKU1 Not Detected (Not Detect); Coronavirus NL 63 Not Detected (Not Detect); Coronavirus OC43 Not Detected (Not Detect); Human Metapneumovirus Not Detected (Not Detect); Human Rhinovirus/Enterovirus Not Detected (Not Detect); Influenza A Not Detected (Not Detect); Influenza B Not Detected (Not Detect); Mycoplasma pneumoniae Not Detected (Not Detect); Parainfluenza Virus 1 Not Detected (Not Detect); Parainfluenza Virus 2 Not Detected (Not Detect); Parainfluenza Virus 3 Not Detected (Not Detect); Parainfluenza Virus 4 Not Detected (Not Detect); Respiratory Syncytial Virus Not Detected (Not Detect); SARS- CoV-2 Not Detected (Not Detecte)
[2023-02-09 04:15] LABS: Amorphous Sediment Urine 3+; Bacteria Urine Occasional (0-1); Granular Casts Urine 1-5/LPF; RBC Urine 0-1/HPF (0-5/HPF); WBC Urine None Seen (0-5/HPF)
[2023-02-09 04:43] LABS: Reflexed Lactate in 2 Hours Y
[2023-02-09 05:17] LABS: Lactate 2HR (Lactic Acid Rflx) 1.6 mmol/L (0.7-2.1)
--- NOTE | 2023-02-09 06:00 | P.HP_ITS ---
History of Present Illness History of Present Illness Date Patient Seen: 02/09/23 Time Patient Seen: 06:00 Chief complaint: fever/vomiting/confusion Narrative: Luis Davison is a 47-year-old male with a history of depression who takes Zoloft, denies any other medical history, medications, or surgeries who was brought into the ED by his . The patient and his are visiting from [place] for the past 2 or 3 days the patient has had worsening confusion fr ustration agitation balance and coordination issues falling injuring his left hand, difficulty answering questions with severe fever, nausea, vomiting, diarrhea. Patient presented to the ED febrile temp 101.8, BP 139/77, tachycardic heart rates up to 126, tachypneic respiratory rates 20-24, satting 95 96% on room air. Patient met severe sepsis SIRS criteria. On admit patient denies chest pain, shortness in breath, headache, changes in vision, difficulty swallowing, speech impairment, weakness, numbness, tingling, difficulty with ambulation, recent falls, head injury, LOC, fever, body aches, chills, cough, recent exposure to illness, abdominal pain, nausea, vomiting, urinary incontinence/retention, dysuria, frequency, urgency, hematuria, bowel changes, constipation, incontinence, melena, rashes, recent changes to medication, travel, illness, injury, or trauma. Denies history of skin infections, exposure to insect or animal bites. Denies recreational substances. Patient denies any personal or family history rare unusual infections disease process, genetic disorders, or unexplained illnesses. Admit exam was completed in the ED: The patient became extremely frustrated had difficulty answering questions, appeared cognitively impaired, and refused to continue further with questions in evaluation. Admit temp 104.1?, BP 123/85, HR 111, RR 22, O2 saturation 96% on room air. Patient is hemodynamically stable in no respiratory distress but is quite agitated by his left hand pain. The patient verbalized that the spinal tap was causing no discomfort but that his left hand pain was killing him. WBC 14.3, neutrophils 13,156, PLT 125, hyponatremia sodium 126, chloride 88, BUN 24, glucose 183, lactate 3.0. Tox screen negative, respiratory panel negative, GI panel pending, LP results pending, chest x-ray negative, left hand x-ray negative, EKG sinus tachycardic rhythm. Patient being admitted to the ICU with severe sepsis with lactic acidosis of unknown etiology, encephalopathy, ground level fall, left hand injury, hyponatremia. [facility] Medical History (Updated 02/09/23 @ 06:46 by Tom Bennett DO) Depression Family History Mother COVID Father No problems noted. Social History Smoking Status: Never smoker Comment: Patient refused to answer further questions Meds Home Medications and Allergies Home Medications Medication Instructions Recorded Confirmed Type venlafaxine 150 mg mg PO 02/09/23 History capsule,extended release 24 hr Review of Systems Review of Systems Narrative: All 12 point systems reviewed with the patient and are negative except otherwise documented. Exam Vital Signs (past 8 hours): - 02/09/23 02:17 02/09/23 02:35 02/09/23 02:35 Temperature 101.8 F H 104.1 F H Pulse Rate 113 H 101 H Respiratory Rate 20 16 Blood Pressure 139/76 136/82 Pulse Oximetry 96 98 Oxygen Delivery Method Room Air 02/09/23 03:04 02/09/23 03:00 02/09/23 03:12 Temperature 104.1 F H Pulse Rate 110 H Respiratory Rate 19 Blood Pressure 125/74 Pulse Oximetry 98 Oxygen Delivery Method 02/09/23 03:12 02/09/23 03:30 02/09/23 03:30 Temperature Pulse Rate 108 H 108 H Respiratory Rate 20 26 H Blood Pressure 123/85 Pulse Oximetry 99 98 Oxygen Delivery Method 02/09/23 04:00 02/09/23 05:01 Temperature 99.7 F H Pulse Rate 111 H Respiratory Rate 22 Blood Pressure Pulse Oximetry 96 Oxygen Delivery Method Oxygen Delivery Method Room Air Narrative Exam Narrative: General: Patient is a well-developed, well-nourished obese male, mild cognitive impairment/confusion, agitation, ill-appearing in no acute distress at this time. HEENT: Normocephalic, atraumatic, extraocular muscles intact, oral pharynx is clear and mucous membranes are moist. Neck is supple and symmetric, trachea is midline, no adenopathy, no thyroid enlargement, nontender, no masses palpated. Negative for JVD Chest: Normal AP diameter and contour without kyphoscoliosis, no nasal flaring, retractions, or tachypneic labored Lungs: Auscultation of all lung rhodes are clear without adventitious sounds, wheezes, rhonchi, or rales. Cardio: Tachycardic regular rate and rhythm without murmur, rubs, or gallops, no carotid bruit, no cardiac pulsations present. Abdomen: Soft nontender, negative for organomegaly, or masses. Bowel sounds are present in all 4 quadrants without guarding or rebound, no CVA tenderness. Musculoskeletal: Muscle strength and tone are equal within normal limits, no deformity, crepitus, effusions, cyanosis, clubbing or edema present. Full range of motion intact radial and pedal pulses are normal. Left hand: Noted slight inflammation and bruising to the dorsal side of the left hand, no erythema or deformity noted no open skin or obvious injury. Skin: Warm dry and intact without rashes, ulcerations or petechiae. Neuro: Alert and orientated x3, strength is +5/5 in all extremities, sensation to touch intact, no gross deficits noted of cranial nerves. Psych: Patient has a well-kept appearance, agitated affect, cognitively impaired, mental status attitude thought context and judgments appear inappropriate for age and situation. Patient does not appear to grasp the severity of his illness. Objective Labs 02/09/23 02:35 02/09/23 02:35 Labs: Laboratory Results - last 24 hr 02/09/23 02/09/23 02/09/23 02:35 02:35 02:35 WBC 14.3 H RBC 4.73 Hgb 14.3 Hct 41.4 MCV 87.4 MCH 30.2 MCHC 34.6 RDW 13.5 Plt Count 125 L Neut % (Auto) Not Reportable Lymph % (Auto) Not Reportable Liberty % (Auto) Not Reportable Eos % (Auto) Not Reportable Baso % (Auto) Not Reportable Lymph # (Auto) Not Reportable Liberty # (Auto) Not Reportable Baso # (Auto) Not Reportable Total Counted 100 Seg Neutrophils % 60.0 Band Neutrophils % 32.0 H Lymphocytes % (Manual) 1.0 L Monocytes % (Manual) 4.0 Metamyelocytes % 1.0 H Myelocytes % 2.0 H Neutrophils # (Manual) 02489 H RBC Morphology Normal morphology Sodium 126 L Potassium 3.8 Chloride 88 L Carbon Dioxide 26 BUN 24 H Creatinine 1.21 Estimated GFR > 60 BUN/Creatinine Ratio 19.8 Glucose 183 H Lactate 3.0 H Calcium 8.6 Total Bilirubin 1.2 AST 38 ALT 34 Alkaline Phosphatase 59 Total Protein 8.0 Albumin 4.2 Globulin 3.8 Albumin/Globulin Ratio 1.1 Urine RBC Urine WBC Amorphous Sediment Urine Bacteria Granular Casts Micro UA Comment U Opiates 300ng/mL cut Ur Oxycodone Screen Urine Methadone Screen Ur Barbiturates Screen U Tricyclic Antidepress Ur Phencyclidine Scrn Ur Amphetamines Screen U Methamphetamines Scrn Ur MDMA Scrn (Ecstasy) U Benzodiazepines Scrn Urine Cocaine Screen U Marijuana (THC) Screen Ethyl Alcohol Chlamy pneumoniae PCR Adenovirus (PCR) B. pertussis DNA (PCR) B.parapertussis DNA PCR Coronavirus OC43 (PCR) Coronavirus HKU1 (PCR) Coronavirus 229E (PCR) SARS-CoV-2 (PCR) Coronavirus NL63 (PCR) Human Metapneumovir PCR Influenza Type A (PCR) Influenza Type B (PCR) M. pneumoniae (PCR) Parainfluenza 1 (PCR) Parainfluenza 2 (PCR) Parainfluenza 3 (PCR) Parainfluenza 4 (PCR) RSV (PCR) Entero/Rhino (PCR) 02/09/23 02/09/23 02/09/23 02:35 03:05 03:22 WBC RBC Hgb Hct MCV MCH MCHC RDW Plt Count Neut % (Auto) Lymph % (Auto) Liberty % (Auto) Eos % (Auto) Baso % (Auto) Lymph # (Auto) Liberty # (Auto) Baso # (Auto) Total Counted Seg Neutrophils % Band Neutrophils % Lymphocytes % (Manual) Monocytes % (Manual) Metamyelocytes % Myelocytes % Neutrophils # (Manual) RBC Morphology Sodium Potassium Chloride Carbon Dioxide BUN Creatinine Estimated GFR BUN/Creatinine Ratio Glucose Lactate Calcium Total Bilirubin AST ALT Alkaline Phosphatase Total Protein Albumin Globulin Albumin/Globulin Ratio Urine RBC 0-1/hpf Urine WBC None seen Amorphous Sediment 3+ Urine Bacteria Occasional (0-1) Granular Casts 1-5/lpf Micro UA Comment * U Opiates 300ng/mL cut Ur Oxycodone Screen Urine Methadone Screen Ur Barbiturates Screen U Tricyclic Antidepress Ur Phencyclidine Scrn Ur Amphetamines Screen U Methamphetamines Scrn Ur MDMA Scrn (Ecstasy) U Benzodiazepines Scrn Urine Cocaine Screen U Marijuana (THC) Screen Ethyl Alcohol < 10 Chlamy pneumoniae PCR Not detected Adenovirus (PCR) Not detected B. pertussis DNA (PCR) Not detected B.parapertussis DNA PCR Not detected Coronavirus OC43 (PCR) Not detected Coronavirus HKU1 (PCR) Not detected Coronavirus 229E (PCR) Not detected SARS-CoV-2 (PCR) Not detected Coronavirus NL63 (PCR) Not detected Human Metapneumovir PCR Not detected Influenza Type A (PCR) Not detected Influenza Type B (PCR) Not detected M. pneumoniae (PCR) Not detected Parainfluenza 1 (PCR) Not detected Parainfluenza 2 (PCR) Not detected Parainfluenza 3 (PCR) Not detected Parainfluenza 4 (PCR) Not detected RSV (PCR) Not detected Entero/Rhino (PCR) Not detected 02/09/23 02/09/23 03:22 04:53 WBC RBC Hgb Hct MCV MCH MCHC RDW Plt Count Neut % (Auto) Lymph % (Auto) Liberty % (Auto) Eos % (Auto) Baso % (Auto) Lymph # (Auto) Liberty # (Auto) Baso # (Auto) Total Counted Seg Neutrophils % Band Neutrophils % Lymphocytes % (Manual) Monocytes % (Manual) Metamyelocytes % Myelocytes % Neutrophils # (Manual) RBC Morphology Sodium Potassium Chloride Carbon Dioxide BUN Creatinine Estimated GFR BUN/Creatinine Ratio Glucose Lactate 1.6 Calcium Total Bilirubin AST ALT Alkaline Phosphatase Total Protein Albumin Globulin Albumin/Globulin Ratio Urine RBC Urine WBC Amorphous Sediment Urine Bacteria Granular Casts Micro UA Comment U Opiates 300ng/mL cut Negative Ur Oxycodone Screen Negative Urine Methadone Screen Negative Ur Barbiturates Screen Negative U Tricyclic Antidepress Negative Ur Phencyclidine Scrn Negative Ur Amphetamines Screen Negative U Methamphetamines Scrn Negative Ur MDMA Scrn (Ecstasy) Negative U Benzodiazepines Scrn Negative Urine Cocaine Screen Negative U Marijuana (THC) Screen Negative Ethyl Alcohol Chlamy pneumoniae PCR Adenovirus (PCR) B. pertussis DNA (PCR) B.parapertussis DNA PCR Coronavirus OC43 (PCR) Coronavirus HKU1 (PCR) Coronavirus 229E (PCR) SARS-CoV-2 (PCR) Coronavirus NL63 (PCR) Human Metapneumovir PCR Influenza Type A (PCR) Influenza Type B (PCR) M. pneumoniae (PCR) Parainfluenza 1 (PCR) Parainfluenza 2 (PCR) Parainfluenza 3 (PCR) Parainfluenza 4 (PCR) RSV (PCR) Entero/Rhino (PCR) Assessment & Plan Assessment & Plan narrative: Luis Davison is a 47-year-old male with a history of depression who takes Zoloft, denies any other medical history, medications, or surgeries who was brought into the ED by his . For the past 2 or 3 days the patient has had worsening confusion frustration agitation balance and coordination issues falling injuring his left hand, difficulty answering questions with severe fever, nausea, vomiting, &diarrhea. Patient being admitted to the ICU with severe sepsis with lactic acidosis of unknown etiology, encephalopathy, ground level fall, left hand injury, hyponatremia. 1. Severe sepsis without shock, with lactic acidosis, of unknown etiology, with encephalopathy, acute, present on admission - ED febrile temp 101.8, BP 139/77, tachycardic heart rates up to 126, tachypneic respiratory rates 20-24, satting 95 96% on room air. Met severe sepsis SIRS criteria. -During admit pt became extremely frustrated had difficulty answering questions, appeared cognitively impaired, and refused to continue further with questions in evaluation. -considering possibility of stroke spinal injury brain injury or infection, left hand soft tissue injury, meningitis unclear at this time as to the source of the infection. Suspect undiagnosed diabetes, currently are A1cs have to be sent out and so we are unable to obtain immediate results. -Admit temp 104.1?, BP 123/85, HR 111, RR 22, O2 saturation 96% on room air. - WBC 14.3, neutrophils 13,156, PLT 125, chloride 88, BUN 24, glucose 183, lactate 3.0. -Tox screen negative, respiratory panel negative, -GI panel pending, LP results pending, A1c, Blood,& urine cultures pending -chest x-ray negative. -Ordered:CRP, ESR, MRSA, H pylori, C diff -brain MR ordered -patient received sepsis hydration bolus in ED with Rocephin -we will continue NS 150 cc/HR, Zosyn for broad-spectrum coverage-pending culture results 2. Ground level fall secondary to balance and coordination issues,acute onset, resulting in left hand injury, acute, present on admission -left hand x-ray negative -pain management -MRI of left hand 3. Hyponatremia, moderate, acute, present on admission -sodium 126 -patient received sepsis bolus in ED -continue with NS at 150 cc/HR 4. Obesity, moderate , acute on chronic, present on admission -BMI 41.1 -dietary consult ordered regarding nutritional education and information for dietary, lifestyle, exercise, and weight changes. -the patient is at much higher risk for medical and surgical complications due to obesity as it relates to chronic illnesses:, and acute illness. The patient's obesity increases the difficulty and complexity of medical and/or surgical interventions, management and increases the chances of poor outcome such as morbidity and mortality as well as impaired wound healing. Code status: Full Surrogate decision maker: Michelle Davison MARYBETH PCR: Negative DVT/VTE prophylaxis: Lovenox and SCDs Disposition: Patient admitted to the ICU expected length of stay greater than 2 midnights. I have utilized all available immediate resources to obtain, update, or review the patient's current medications. I confirmed that the patient's advanced care plan is present, Code status is documented and/or surrogate decision maker is listed in the patient's medical record. I have personally reviewed patient's chart notes from PCP, specialists, diagnostic imaging, and laboratory results.
[2023-02-09 06:03] LABS: CSF Tube Number 2
[2023-02-09 06:04] LABS: Appearance CSF Clear (Clear); CSF Tube Volume 1.5 mL; Color CSF Colorless (Colorless); Red Blood Cell CSF 1 RBC /uL; White Blood Cell CSF 9 MONO/uL (0-5)
[2023-02-09] MEDS: SODIUM CHLORIDE 0.9% 1,000 ML 150 ML IV ×3 (06:31→20:52)
[2023-02-09 06:40] LABS: Mononuclear WBC CSF 9 %; Polynuclear WBC CSF 1 %
[2023-02-09 06:53] LABS: INR 1.5 (0.9-1.3); Prothrombin Time 17.2 SECONDS (10.1-12.7)
[2023-02-09 06:58] LABS: Magnesium 1.6 mg/dL (1.6-2.3)
[2023-02-09 07:02] LABS: Escherichia coli K1 Not Detected (Not Detect)
[2023-02-09 07:03] LABS: Cryptococcus neoformans/gattii Not Detected (Not Detect); Enterovirus Not Detected (Not Detect); Haemophilus influenzae Not Detected (Not Detect); Herpes simplex virus 1 Not Detected (Not Detect); Herpes simplex virus 2 Not Detected (Not Detect); Human herpesvirus 6 Not Detected (Not Detect); Human parechovirus Not Detected (Not Detect); Listeria monocytogenes Not Detected (Not Detect); Neisseria meningitidis Not Detected (Not Detect); Streptococcus agalactiae Not Detected (Not Detect); Streptococcus pneumoniae Not Detected (Not Detect); Varicella Zoster Virus Not Detected (Not Detecte)
[2023-02-09 07:06] LABS: Glucose CSF 93 mg/dL (40-70); Total Protein CSF 58 mg/dL (12-60)
[2023-02-09 08:48] LABS: Erythrocyte Sedimentation Rate 31 MM/HR (0-15)
[2023-02-09] MEDS: INSULIN LISPRO 100 UNIT/ML 3ML VIAL SUBCUT (08:54)
[2023-02-09] MEDS: PIPERACILLIN/TAZO 4.5 GM in SODIUM CHLORIDE 0.9% 100 ML IV (08:54)
[2023-02-09 08:58] LABS: C-Reactive Protein Quant 42.9 mg/dL (<1.0)
--- NOTE | 2023-02-09 08:58 | DIET.CONS ---
Dietary Consultation Note Admission Date: 02/09/2023 07:12 Assessment: RD consulted for BMI of 41. Rec OP nutrition therapy Ht: 180.34 cm Wt: 133.81 kg Last BM: 02/09/23 (02/09/23 03:14) MNA: Joe Score: Diet: 02/09/23 Breakfast General (Regular) Diet Diet Modifications: Labs: RBC 4.73 X10^6/uL (4.5-5.9) 02/09/23 02:35 Hgb 14.3 g/dL (13.5-17.5) 02/09/23 02:35 Hct 41.4 % (41-53) 02/09/23 02:35 Creatinine 1.21 mg/dL (0.66-1.25) 02/09/23 02:35 Lactate 1.6 mmol/L (0.7-2.1) 02/09/23 04:53 Electronically Signed by: Joan Lawler 02/09/23 08:58 Clinical Dietitian [address] [id number]
[2023-02-09] MEDS: MAGNESIUM CHLORIDE 64 MG TABLET 128 MG PO (09:05)
[2023-02-09] MEDS: ENOXAPARIN 40 MG/0.4 ML SYRINGE SUBCUT ×2 (09:06→21:06)
[2023-02-09] MEDS: VENLAFAXINE ER 75 MG CAP 150 MG PO (09:07)
--- NOTE | 2023-02-09 09:34 | PC.NURSE ---
wedding ring removed from left hand and given to . she placed it in her purse.
--- NOTE | 2023-02-09 09:37 | PC.NURSE ---
received patient very restless. skin is mottled. rolling all over the bed. difficulty finding words, keeps asking his to answer my questions. GCS 15. shaking. bood glucose 138. reports he has been like this all night. temp 99.8 orally. was able to eat a banana this am. dr. hair aware of pt status. pt to go to ICu.
--- NOTE | 2023-02-09 10:10 | PC.NURSE ---
This ADDRESSING MACHINE OPERATOR assisted pt to use urinal at bedside. Pt grabbed emesis bag and began to urinate in bag. This ADDRESSING MACHINE OPERATOR then reminded pt that was not the urinal and pt grabs urinal.
[2023-02-09] MEDS: PIPERACILLIN/TAZO 3.375 GM in SODIUM CHLORIDE 0.9% 100 ML IV (11:05)
[2023-02-09] MEDS: ACETAMINOPHEN 325 MG TABLET 975 MG PO (11:06)
--- NOTE | 2023-02-09 11:40 | DI.ECHO.S_ITS ---
[facility] +---------+ : : [id number] : : [place], [place] : : : : [id number] : : : : Phone: [phone]+ Echocardiogram Report + + :Name: ANTONY LOPEZ Study Date: 02/09/2023 Height: 71 in : :[facility] ReadingLocation: Weight: 304 lb : : Gender: Male BSA: 2.5 m2 : :: 1975 Age: 47 yrs BP: 117/85 mmHg: :Reason For Study: RECENT STREP : : Performed By: Jhoana Parra : :Referring: GARY SOSA : + + Interpretation Summary 1) Normal left ventricular size with low normal systolic function (EF 50-55%). 2) Normal right ventricular size and function. 3) No significant valvular abnormalities. 4) No prior Echo available for comparison. If there is clinical concern for endocarditis, consider TARSHA if it would exchange consultant, Procedure: A two-dimensional transthoracic echocardiogram with color flow and Doppler was performed. Most of the acoustic windows were suboptimal, but the best imaging was obtained from the parasternal window. There is no prior echocardiogram noted for this patient. Left Ventricle: The left ventricle is normal in size. Left ventricular wall thickness is borderline increased. There is no ventricular septal defect visualized. The ejection fraction is estimated to be 50-55%. There are no obvious focal wall motion abnormalities noted but poor endocardial definition reduces the sensitivity for the detection of such. Diastolic function could not be accurately assessed due to tachycardia. Right Ventricle: The right ventricle is normal in size and function. Atria: Both atria are normal in size. Mitral Valve: The mitral valve is normal in structure and function. There is no vegetation seen on the mitral valve. There is trace mitral regurgitation. Aortic Valve: The aortic valve is normal in structure and function. The aortic valve opens well. There is no aortic valvular vegetation. There is no aortic valve stenosis. No aortic regurgitation is present. Tricuspid Valve: The tricuspid valve is not well visualized, but is grossly normal. There is no obvious tricuspid valve vegetation. Pulmonary artery pressures cannot be estimated because of the lack of a measurable TR jet velocity but the IVC suggests a CVP of around 3 mmHg. There is a trace or physiologic amount of tricuspid regurgitation. Pulmonic Valve: The pulmonic valve leaflets are thin and pliable; valve motion is normal. There is no vegetation on the pulmonic valve. There is a trace or physiologic amount of pulmonic regurgitation. Great Vessels: The aortic root is normal size. The ascending aorta is normal in size. The IVC is of normal diameter and collapses greater than 50% with a sniff. This suggests a low right atrial pressure of 3 mm Hg. Pericardium/ Pleura There is no pericardial effusion. MMode/2D Measurements & Calculations LVIDd: 5.5 cm LVOT diam: 2.3 cm LVIDs: 3.5 cm Ao root diam: 3.7 cm FS: 35.3 % asc Aorta Diam: 3.3 cm EPSS: 0.84 cm IVSd: 1.2 cm LVPWd: 0.97 cm LV graham. diameter/BSA (cm/m^2): 2.2 LV sys. diameter/BSA (cm/m^2): 1.4 LA A2 area: 19.0 cm2 RA long axis: 5.8 cm LA A4 area: 21.7 cm2 RA area: 15.2 cm2 LA length (vol): 5.3 cm RA vol: 34.1 ml LA vol: 66.0 ml RA : 13.6 ml/m2 LA vol index: 26.2 ml/m2 IVC diam: 2.1 cm RVD1 (basal): 4.1 cm TAPSE: 2.4 cm Doppler Measurements & Calculations Ao V2 max: 147.0 cm/sec LVOT Max Andry: 113.7 cm/sec Ao V2 mean: 104.4 cm/sec LV V1 max P.2 mmHg Ao max P.6 mmHg LV V1 VTI: 18.5 cm Ao mean P.8 mmHg THERESA(I,D): 3.5 cm2 Ao V2 VTI: 22.9 cm THERESA(V,D): 3.3 cm2 sev ratio: 0.81 THERESA indexed to BSA (cm^2/m^2): 1.4 MV E max andry: 85.0 cm/sec PA V2 max: 61.8 cm/sec MV A max andry: 83.9 cm/sec PA V2 mean: 44.1 cm/sec MV E/A: 1.0 PA mean P.86 mmHg Lat Peak E' Andry: 10.6 cm/sec PA pr(Accel): 47.3 mmHg E/E' lat: 8.0 MV dec time: 0.20 sec SV(LVOT): 79.4 ml Reading Physician:02:57 PM
[2023-02-09 12:08] LABS: MRSA (Nasal) PCR Not Detected (Not Detect)
[2023-02-09] MEDS: VANCOMYCIN 3,000 MG in SODIUM CHLORIDE 0.9% 500 ML 166.667 MG IV (12:19)
[2023-02-09 14:16] LABS: Acinetobacter calcoa-baumannii Not Detected (Not Detect); Bacteroides fragilis Not Detected (Not Detect); Candida albicans Not Detected (Not Detect); Candida auris Not Detected (Not Detect); Candida glabrata Not Detected (Not Detect); Candida krusei Not Detected (Not Detect); Candida parapsilosis Not Detected (Not Detect); Candida tropicalis Not Detected (Not Detect); Cryptococcus neoformans/gatti Not Detected (Not Detect); Enterobacter cloacae complex Not Detected (Not Detect); Enterobacterales Not Detected (Not Detect); Enterococcus faecalis Not Detected (Not Detect); Enterococcus faecium Not Detected (Not Detect); Haemophilus influenzae Not Detected (Not Detect); Klebsiella aerogenes Not Detected (Not Detect); Listeria monocytogenes Not Detected (Not Detect); Neisseria meningitidis Not Detected (Not Detect); Proteus species Not Detected (Not Detect); Pseudomonas aeruginosa Not Detected (Not Detect); Salmonella species Not Detected (Not Detect); Serratia marcescens Not Detected (Not Detect); Staphylococcus epidermidis Not Detected (Not Detect); Staphylococcus lugdunensis Not Detected (Not Detect); Staphylococcus species Not Detected (Not Detect); Stenotrophomonas maltophilia Not Detected (Not Detect); Streptococcus agalactiae (Gr B Not Detected (Not Detect); Streptococcus pneumonia Not Detected (Not Detect); Streptococcus pyogenes (Gr A) DETECTED (Not Detect); Streptococcus species DETECTED (Not Detect)
--- NOTE | 2023-02-09 15:36 | CM.DANOTE ---
Addendum entered by JUAN LUIS Patel 02/10/23 11:33: ADD: DC Note- Dr Bryant wants to transfer patient for ID. Suspects infection w/ joint involvement NICOLA Original Note: Initial DCP Assessment Note Pt is a 47 yo male, resident of [place], visiting family in [place], arrives w/spouse for complaints of increased confusion, agitation and fever/chills/vomiting admitted for management of sepsis - blood culture+ for strep PCP: Unknown Payer: [facility] Reviewed chart, patient A+O per nursing so met w.patient to introduce self and role. 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 Patient and family are visiting patient's Dad Miguel and planned to return home tomorrow 02.10.23 Patient states he isn't sure now when he will be able to return home but can discharge to his Dad's house in [place] w/assist if needed before he flies home. No barriers identified at this time to patient's safe discharge home w/family to assist once medically cleared; close outpatient f/u recommended once home to [place] CM team will plan to follow closely in case any DC needs or concerns arise JUAN LUIS Butler Discharge Planning/Care Management CM Discharge Assessment Start: 02/09/23 15:34 Freq: Status: Active Protocol: Document 02/09/23 15:34 NICOLA (Rec: 02/09/23 15:36 NICOLA [id number]) Discharge Planning Assessment Assigned Automotive Service Director JUAN LUIS Hoang DPOA/Assigned Designee Name Michelle Davison spouse Contact Information [phone] Advance Directives? No History Provided By Patient,Medical Record Prior Living Arrangements House Household Members spouse,children Type of transporation used prior to Drives own vehicle admit Independent with ADL's Yes Is patient alert and oriented? Yes Barriers to Discharge No Comment Home w/family expected Discharge Plan Home Transportation Arrangement family Referrals Initiated None needed Additional Comment CM team following closely
--- NOTE | 2023-02-09 15:42 | PM.PN.1 ---
Subjective Subjective Date Patient Seen: 02/09/23 Interval history: 47 yo adm with high fever, chills, confusion, N/V Pt treated for strep throat a month ago and now comes in high fever, chills likely SBE. Blood cx + GPC. Pt still with minor confusion, fever, c/o left hand pain after fell Exam Vital Signs (past 8 hours): - 02/09/23 09:30 02/09/23 08:00 02/09/23 08:00 Temperature 99.8 F H Pulse Rate 105 H Respiratory Rate 26 H Blood Pressure 172/90 H Pulse Oximetry 97 Oxygen Delivery Method 02/09/23 08:30 02/09/23 08:30 02/09/23 09:00 Temperature Pulse Rate 113 H 119 H Respiratory Rate 28 H Blood Pressure 191/94 H Pulse Oximetry 98 97 Oxygen Delivery Method Room Air 02/09/23 09:15 02/09/23 09:15 02/09/23 09:30 Temperature Pulse Rate 114 H 114 H Respiratory Rate Blood Pressure 117/85 Pulse Oximetry 96 97 Oxygen Delivery Method 02/09/23 10:40 02/09/23 10:00 02/09/23 10:30 Temperature 102.6 F H Pulse Rate 125 H 111 H Respiratory Rate 26 H Blood Pressure Pulse Oximetry 97 94 Oxygen Delivery Method 02/09/23 11:06 02/09/23 07:46 02/09/23 10:54 Temperature 102.3 F H Pulse Rate 116 H Respiratory Rate 14 Blood Pressure Pulse Oximetry 97 Oxygen Delivery Method Room Air 02/09/23 10:54 02/09/23 11:00 02/09/23 11:30 Temperature Pulse Rate 113 H 116 H Respiratory Rate 17 24 Blood Pressure 113/68 Pulse Oximetry 96 95 Oxygen Delivery Method 02/09/23 12:00 02/09/23 12:30 02/09/23 13:00 Temperature Pulse Rate 109 H 107 H 103 H Respiratory Rate 17 23 21 Blood Pressure Pulse Oximetry 96 96 96 Oxygen Delivery Method 02/09/23 13:30 Temperature Pulse Rate 98 H Respiratory Rate Blood Pressure Pulse Oximetry 96 Oxygen Delivery Method Oxygen Delivery Method Room Air Narrative Exam Narrative: Gen: alert, calm, cooperative Neck: no nuchal rigidity Lungs: clear CV: regular, tachy Abd: nt Ext: no edema, Lt hand: no wrist/hand redness or swelling, not focally tender Neuro; speech and affect nl Skin: no classical stigmata of SBE; there is macular red spot on left forearm Objective Labs 02/09/23 02:35 02/09/23 02:35 Labs: Laboratory Results - last 24 hr 02/09/23 02/09/23 02/09/23 02:35 02:35 02:35 WBC 14.3 H RBC 4.73 Hgb 14.3 Hct 41.4 MCV 87.4 MCH 30.2 MCHC 34.6 RDW 13.5 Plt Count 125 L Neut % (Auto) Not Reportable Lymph % (Auto) Not Reportable [place] % (Auto) Not Reportable Eos % (Auto) Not Reportable Baso % (Auto) Not Reportable Lymph # (Auto) Not Reportable [place] # (Auto) Not Reportable Baso # (Auto) Not Reportable Total Counted 100 Seg Neutrophils % 60.0 Band Neutrophils % 32.0 H Lymphocytes % (Manual) 1.0 L Monocytes % (Manual) 4.0 Metamyelocytes % 1.0 H Myelocytes % 2.0 H Neutrophils # (Manual) 00253 H RBC Morphology Normal morphology ESR PT INR Sodium 126 L Potassium 3.8 Chloride 88 L Carbon Dioxide 26 BUN 24 H Creatinine 1.21 Estimated GFR > 60 BUN/Creatinine Ratio 19.8 Glucose 183 H Lactate 3.0 H Calcium 8.6 Magnesium Total Bilirubin 1.2 AST 38 ALT 34 Alkaline Phosphatase 59 C-Reactive Protein Total Protein 8.0 Albumin 4.2 Globulin 3.8 Albumin/Globulin Ratio 1.1 Urine RBC Urine WBC Amorphous Sediment Urine Bacteria Granular Casts Micro UA Comment CSF Tube Number CSF Volume CSF Appearance CSF Color CSF WBC CSF RBC CSF Mononuclear WBCs CSF Polynuclear WBCs CSF Glucose CSF Total Protein CSF C.neoform/gat PCR CSF CMV DNA (PCR) CSF Enterovirus (PCR) CSF E. coli (PCR) CSF H. influenzae (PCR) CSF HSV I (PCR) CSF HSV II (PCR) CSF HHV 6 (PCR) CSF L.monocytogenes PCR CSF N. meningitidis PCR CSF Parechovirus (PCR) CSF S. agalactiae (PCR) CSF S. pneumoniae (PCR) CSF VZV (PCR) Nasal Screen MRSA (PCR) U Opiates 300ng/mL cut Ur Oxycodone Screen Urine Methadone Screen Ur Barbiturates Screen U Tricyclic Antidepress Ur Phencyclidine Scrn Ur Amphetamines Screen U Methamphetamines Scrn Ur MDMA Scrn (Ecstasy) U Benzodiazepines Scrn Urine Cocaine Screen U Marijuana (THC) Screen Ethyl Alcohol A.calcoaceticus-baumannii cmplx PCR Chlamy pneumoniae PCR Adenovirus (PCR) Bacteroides fragilis B. pertussis DNA (PCR) B.parapertussis DNA PCR Meaghan albicans (PCR) Meaghan auris (PCR) C. glabrata (PCR) C. krusei (PCR) C. parapsilosis (PCR) C. tropicalis (PCR) Coronavirus OC43 (PCR) Coronavirus HKU1 (PCR) Coronavirus 229E (PCR) SARS-CoV-2 (PCR) Coronavirus NL63 (PCR) C. neoform/gattii (PCR) Enterobacterales (PCR) E. cloacae complex PCR Enterococc faecalis PCR Enterococc faecium PCR E. coli (PCR) H. influenzae (PCR) Human Metapneumovir PCR Influenza Type A (PCR) Influenza Type B (PCR) Klebsiella aerogenes (PCR) Klebsiella oxytoca PCR Klebsiella pneumoniae List. monocytogenes PCR M. pneumoniae (PCR) N. meningitidis (PCR) Parainfluenza 1 (PCR) Parainfluenza 2 (PCR) Parainfluenza 3 (PCR) Parainfluenza 4 (PCR) Proteus species (PCR) RSV (PCR) Entero/Rhino (PCR) Salmonella spp. (PCR) Serratia marcescens PCR Staphylococcus sp PCR Staph aureus (PCR) Staph epidermidis (PCR) Staph lugdunensis PCR S. maltophilia (PCR) Streptococcus sp PCR Group A Strep (PCR) Strep agalactiae (PCR) Strep pneumoniae (PCR) P. aeruginosa (PCR) 02/09/23 02/09/23 02/09/23 02:35 02:35 02:35 WBC RBC Hgb Hct MCV MCH MCHC RDW Plt Count Neut % (Auto) Lymph % (Auto) [place] % (Auto) Eos % (Auto) Baso % (Auto) Lymph # (Auto) [place] # (Auto) Baso # (Auto) Total Counted Seg Neutrophils % Band Neutrophils % Lymphocytes % (Manual) Monocytes % (Manual) Metamyelocytes % Myelocytes % Neutrophils # (Manual) RBC Morphology ESR PT INR Sodium Potassium Chloride Carbon Dioxide BUN Creatinine Estimated GFR BUN/Creatinine Ratio Glucose Lactate Calcium Magnesium 1.6 Total Bilirubin AST ALT Alkaline Phosphatase C-Reactive Protein 42.9 H Total Protein Albumin Globulin Albumin/Globulin Ratio Urine RBC Urine WBC Amorphous Sediment Urine Bacteria Granular Casts Micro UA Comment CSF Tube Number CSF Volume CSF Appearance CSF Color CSF WBC CSF RBC CSF Mononuclear WBCs CSF Polynuclear WBCs CSF Glucose CSF Total Protein CSF C.neoform/gat PCR CSF CMV DNA (PCR) CSF Enterovirus (PCR) CSF E. coli (PCR) CSF H. influenzae (PCR) CSF HSV I (PCR) CSF HSV II (PCR) CSF HHV 6 (PCR) CSF L.monocytogenes PCR CSF N. meningitidis PCR CSF Parechovirus (PCR) CSF S. agalactiae (PCR) CSF S. pneumoniae (PCR) CSF VZV (PCR) Nasal Screen MRSA (PCR) U Opiates 300ng/mL cut Ur Oxycodone Screen Urine Methadone Screen Ur Barbiturates Screen U Tricyclic Antidepress Ur Phencyclidine Scrn Ur Amphetamines Screen U Methamphetamines Scrn Ur MDMA Scrn (Ecstasy) U Benzodiazepines Scrn Urine Cocaine Screen U Marijuana (THC) Screen Ethyl Alcohol < 10 A.calcoaceticus-baumannii cmplx PCR Chlamy pneumoniae PCR Adenovirus (PCR) Bacteroides fragilis B. pertussis DNA (PCR) B.parapertussis DNA PCR Meaghan albicans (PCR) Meaghan auris (PCR) C. glabrata (PCR) C. krusei (PCR) C. parapsilosis (PCR) C. tropicalis (PCR) Coronavirus OC43 (PCR) Coronavirus HKU1 (PCR) Coronavirus 229E (PCR) SARS-CoV-2 (PCR) Coronavirus NL63 (PCR) C. neoform/gattii (PCR) Enterobacterales (PCR) E. cloacae complex PCR Enterococc faecalis PCR Enterococc faecium PCR E. coli (PCR) H. influenzae (PCR) Human Metapneumovir PCR Influenza Type A (PCR) Influenza Type B (PCR) Klebsiella aerogenes (PCR) Klebsiella oxytoca PCR Klebsiella pneumoniae List. monocytogenes PCR M. pneumoniae (PCR) N. meningitidis (PCR) Parainfluenza 1 (PCR) Parainfluenza 2 (PCR) Parainfluenza 3 (PCR) Parainfluenza 4 (PCR) Proteus species (PCR) RSV (PCR) Entero/Rhino (PCR) Salmonella spp. (PCR) Serratia marcescens PCR Staphylococcus sp PCR Staph aureus (PCR) Staph epidermidis (PCR) Staph lugdunensis PCR S. maltophilia (PCR) Streptococcus sp PCR Group A Strep (PCR) Strep agalactiae (PCR) Strep pneumoniae (PCR) P. aeruginosa (PCR) 02/09/23 02/09/23 02/09/23 02:35 02:35 03:05 WBC RBC Hgb Hct MCV MCH MCHC RDW Plt Count Neut % (Auto) Lymph % (Auto) [place] % (Auto) Eos % (Auto) Baso % (Auto) Lymph # (Auto) [place] # (Auto) Baso # (Auto) Total Counted Seg Neutrophils % Band Neutrophils % Lymphocytes % (Manual) Monocytes % (Manual) Metamyelocytes % Myelocytes % Neutrophils # (Manual) RBC Morphology ESR PT 17.2 H INR 1.5 H Sodium Potassium Chloride Carbon Dioxide BUN Creatinine Estimated GFR BUN/Creatinine Ratio Glucose Lactate Calcium Magnesium Total Bilirubin AST ALT Alkaline Phosphatase C-Reactive Protein Total Protein Albumin Globulin Albumin/Globulin Ratio Urine RBC Urine WBC Amorphous Sediment Urine Bacteria Granular Casts Micro UA Comment CSF Tube Number CSF Volume CSF Appearance CSF Color CSF WBC CSF RBC CSF Mononuclear WBCs CSF Polynuclear WBCs CSF Glucose CSF Total Protein CSF C.neoform/gat PCR CSF CMV DNA (PCR) CSF Enterovirus (PCR) CSF E. coli (PCR) CSF H. influenzae (PCR) CSF HSV I (PCR) CSF HSV II (PCR) CSF HHV 6 (PCR) CSF L.monocytogenes PCR CSF N. meningitidis PCR CSF Parechovirus (PCR) CSF S. agalactiae (PCR) CSF S. pneumoniae (PCR) CSF VZV (PCR) Nasal Screen MRSA (PCR) U Opiates 300ng/mL cut Ur Oxycodone Screen Urine Methadone Screen Ur Barbiturates Screen U Tricyclic Antidepress Ur Phencyclidine Scrn Ur Amphetamines Screen U Methamphetamines Scrn Ur MDMA Scrn (Ecstasy) U Benzodiazepines Scrn Urine Cocaine Screen U Marijuana (THC) Screen Ethyl Alcohol A.calcoaceticus-baumannii cmplx PCR Not detected Chlamy pneumoniae PCR Not detected Adenovirus (PCR) Not detected Bacteroides fragilis Not detected B. pertussis DNA (PCR) Not detected B.parapertussis DNA PCR Not detected Meaghan albicans (PCR) Not detected Meaghan auris (PCR) Not detected C. glabrata (PCR) Not detected C. krusei (PCR) Not detected C. parapsilosis (PCR) Not detected C. tropicalis (PCR) Not detected Coronavirus OC43 (PCR) Not detected Coronavirus HKU1 (PCR) Not detected Coronavirus 229E (PCR) Not detected SARS-CoV-2 (PCR) Not detected Coronavirus NL63 (PCR) Not detected C. neoform/gattii (PCR) Not detected Enterobacterales (PCR) Not detected E. cloacae complex PCR Not detected Enterococc faecalis PCR Not detected Enterococc faecium PCR Not detected E. coli (PCR) Not detected H. influenzae (PCR) Not detected Human Metapneumovir PCR Not detected Influenza Type A (PCR) Not detected Influenza Type B (PCR) Not detected Klebsiella aerogenes (PCR) Not detected Klebsiella oxytoca PCR Not detected Klebsiella pneumoniae Not detected List. monocytogenes PCR Not detected M. pneumoniae (PCR) Not detected N. meningitidis (PCR) Not detected Parainfluenza 1 (PCR) Not detected Parainfluenza 2 (PCR) Not detected Parainfluenza 3 (PCR) Not detected Parainfluenza 4 (PCR) Not detected Proteus species (PCR) Not detected RSV (PCR) Not detected Entero/Rhino (PCR) Not detected Salmonella spp. (PCR) Not detected Serratia marcescens PCR Not detected Staphylococcus sp PCR Not detected Staph aureus (PCR) Not detected Staph epidermidis (PCR) Not detected Staph lugdunensis PCR Not detected S. maltophilia (PCR) Not detected Streptococcus sp PCR Detected H Group A Strep (PCR) Detected H Strep agalactiae (PCR) Not detected Strep pneumoniae (PCR) Not detected P. aeruginosa (PCR) Not detected 02/09/23 02/09/23 02/09/23 03:22 03:22 04:53 WBC RBC Hgb Hct MCV MCH MCHC RDW Plt Count Neut % (Auto) Lymph % (Auto) [place] % (Auto) Eos % (Auto) Baso % (Auto) Lymph # (Auto) [place] # (Auto) Baso # (Auto) Total Counted Seg Neutrophils % Band Neutrophils % Lymphocytes % (Manual) Monocytes % (Manual) Metamyelocytes % Myelocytes % Neutrophils # (Manual) RBC Morphology ESR PT INR Sodium Potassium Chloride Carbon Dioxide BUN Creatinine Estimated GFR BUN/Creatinine Ratio Glucose Lactate 1.6 Calcium Magnesium Total Bilirubin AST ALT Alkaline Phosphatase C-Reactive Protein Total Protein Albumin Globulin Albumin/Globulin Ratio Urine RBC 0-1/hpf Urine WBC None seen Amorphous Sediment 3+ Urine Bacteria Occasional (0-1) Granular Casts 1-5/lpf Micro UA Comment * CSF Tube Number CSF Volume CSF Appearance CSF Color CSF WBC CSF RBC CSF Mononuclear WBCs CSF Polynuclear WBCs CSF Glucose CSF Total Protein CSF C.neoform/gat PCR CSF CMV DNA (PCR) CSF Enterovirus (PCR) CSF E. coli (PCR) CSF H. influenzae (PCR) CSF HSV I (PCR) CSF HSV II (PCR) CSF HHV 6 (PCR) CSF L.monocytogenes PCR CSF N. meningitidis PCR CSF Parechovirus (PCR) CSF S. agalactiae (PCR) CSF S. pneumoniae (PCR) CSF VZV (PCR) Nasal Screen MRSA (PCR) U Opiates 300ng/mL cut Negative Ur Oxycodone Screen Negative Urine Methadone Screen Negative Ur Barbiturates Screen Negative U Tricyclic Antidepress Negative Ur Phencyclidine Scrn Negative Ur Amphetamines Screen Negative U Methamphetamines Scrn Negative Ur MDMA Scrn (Ecstasy) Negative U Benzodiazepines Scrn Negative Urine Cocaine Screen Negative U Marijuana (THC) Screen Negative Ethyl Alcohol A.calcoaceticus-baumannii cmplx PCR Chlamy pneumoniae PCR Adenovirus (PCR) Bacteroides fragilis B. pertussis DNA (PCR) B.parapertussis DNA PCR Meaghan albicans (PCR) Meaghan auris (PCR) C. glabrata (PCR) C. krusei (PCR) C. parapsilosis (PCR) C. tropicalis (PCR) Coronavirus OC43 (PCR) Coronavirus HKU1 (PCR) Coronavirus 229E (PCR) SARS-CoV-2 (PCR) Coronavirus NL63 (PCR) C. neoform/gattii (PCR) Enterobacterales (PCR) E. cloacae complex PCR Enterococc faecalis PCR Enterococc faecium PCR E. coli (PCR) H. influenzae (PCR) Human Metapneumovir PCR Influenza Type A (PCR) Influenza Type B (PCR) Klebsiella aerogenes (PCR) Klebsiella oxytoca PCR Klebsiella pneumoniae List. monocytogenes PCR M. pneumoniae (PCR) N. meningitidis (PCR) Parainfluenza 1 (PCR) Parainfluenza 2 (PCR) Parainfluenza 3 (PCR) Parainfluenza 4 (PCR) Proteus species (PCR) RSV (PCR) Entero/Rhino (PCR) Salmonella spp. (PCR) Serratia marcescens PCR Staphylococcus sp PCR Staph aureus (PCR) Staph epidermidis (PCR) Staph lugdunensis PCR S. maltophilia (PCR) Streptococcus sp PCR Group A Strep (PCR) Strep agalactiae (PCR) Strep pneumoniae (PCR) P. aeruginosa (PCR) 02/09/23 02/09/23 02/09/23 05:20 05:20 05:46 WBC RBC Hgb Hct MCV MCH MCHC RDW Plt Count Neut % (Auto) Lymph % (Auto) [place] % (Auto) Eos % (Auto) Baso % (Auto) Lymph # (Auto) [place] # (Auto) Baso # (Auto) Total Counted Seg Neutrophils % Band Neutrophils % Lymphocytes % (Manual) Monocytes % (Manual) Metamyelocytes % Myelocytes % Neutrophils # (Manual) RBC Morphology ESR 31 H PT INR Sodium Potassium Chloride Carbon Dioxide BUN Creatinine Estimated GFR BUN/Creatinine Ratio Glucose Lactate Calcium Magnesium Total Bilirubin AST ALT Alkaline Phosphatase C-Reactive Protein Total Protein Albumin Globulin Albumin/Globulin Ratio Urine RBC Urine WBC Amorphous Sediment Urine Bacteria Granular Casts Micro UA Comment CSF Tube Number 2 CSF Volume 1.5 ml CSF Appearance Clear CSF Color Colorless CSF WBC 9 H CSF RBC 1 CSF Mononuclear WBCs 9 CSF Polynuclear WBCs 1 CSF Glucose 93 H CSF Total Protein 58 CSF C.neoform/gat PCR Not detected CSF CMV DNA (PCR) Not detected CSF Enterovirus (PCR) Not detected CSF E. coli (PCR) Not detected CSF H. influenzae (PCR) Not detected CSF HSV I (PCR) Not detected CSF HSV II (PCR) Not detected CSF HHV 6 (PCR) Not detected CSF L.monocytogenes PCR Not detected CSF N. meningitidis PCR Not detected CSF Parechovirus (PCR) Not detected CSF S. agalactiae (PCR) Not detected CSF S. pneumoniae (PCR) Not detected CSF VZV (PCR) Not detected Nasal Screen MRSA (PCR) U Opiates 300ng/mL cut Ur Oxycodone Screen Urine Methadone Screen Ur Barbiturates Screen U Tricyclic Antidepress Ur Phencyclidine Scrn Ur Amphetamines Screen U Methamphetamines Scrn Ur MDMA Scrn (Ecstasy) U Benzodiazepines Scrn Urine Cocaine Screen U Marijuana (THC) Screen Ethyl Alcohol A.calcoaceticus-baumannii cmplx PCR Chlamy pneumoniae PCR Adenovirus (PCR) Bacteroides fragilis B. pertussis DNA (PCR) B.parapertussis DNA PCR Meaghan albicans (PCR) Meaghan auris (PCR) C. glabrata (PCR) C. krusei (PCR) C. parapsilosis (PCR) C. tropicalis (PCR) Coronavirus OC43 (PCR) Coronavirus HKU1 (PCR) Coronavirus 229E (PCR) SARS-CoV-2 (PCR) Coronavirus NL63 (PCR) C. neoform/gattii (PCR) Enterobacterales (PCR) E. cloacae complex PCR Enterococc faecalis PCR Enterococc faecium PCR E. coli (PCR) H. influenzae (PCR) Human Metapneumovir PCR Influenza Type A (PCR) Influenza Type B (PCR) Klebsiella aerogenes (PCR) Klebsiella oxytoca PCR Klebsiella pneumoniae List. monocytogenes PCR M. pneumoniae (PCR) N. meningitidis (PCR) Parainfluenza 1 (PCR) Parainfluenza 2 (PCR) Parainfluenza 3 (PCR) Parainfluenza 4 (PCR) Proteus species (PCR) RSV (PCR) Entero/Rhino (PCR) Salmonella spp. (PCR) Serratia marcescens PCR Staphylococcus sp PCR Staph aureus (PCR) Staph epidermidis (PCR) Staph lugdunensis PCR S. maltophilia (PCR) Streptococcus sp PCR Group A Strep (PCR) Strep agalactiae (PCR) Strep pneumoniae (PCR) P. aeruginosa (PCR) 02/09/23 10:30 WBC RBC Hgb Hct MCV MCH MCHC RDW Plt Count Neut % (Auto) Lymph % (Auto) [place] % (Auto) Eos % (Auto) Baso % (Auto) Lymph # (Auto) [place] # (Auto) Baso # (Auto) Total Counted Seg Neutrophils % Band Neutrophils % Lymphocytes % (Manual) Monocytes % (Manual) Metamyelocytes % Myelocytes % Neutrophils # (Manual) RBC Morphology ESR PT INR Sodium Potassium Chloride Carbon Dioxide BUN Creatinine Estimated GFR BUN/Creatinine Ratio Glucose Lactate Calcium Magnesium Total Bilirubin AST ALT Alkaline Phosphatase C-Reactive Protein Total Protein Albumin Globulin Albumin/Globulin Ratio Urine RBC Urine WBC Amorphous Sediment Urine Bacteria Granular Casts Micro UA Comment CSF Tube Number CSF Volume CSF Appearance CSF Color CSF WBC CSF RBC CSF Mononuclear WBCs CSF Polynuclear WBCs CSF Glucose CSF Total Protein CSF C.neoform/gat PCR CSF CMV DNA (PCR) CSF Enterovirus (PCR) CSF E. coli (PCR) CSF H. influenzae (PCR) CSF HSV I (PCR) CSF HSV II (PCR) CSF HHV 6 (PCR) CSF L.monocytogenes PCR CSF N. meningitidis PCR CSF Parechovirus (PCR) CSF S. agalactiae (PCR) CSF S. pneumoniae (PCR) CSF VZV (PCR) Nasal Screen MRSA (PCR) Not detected U Opiates 300ng/mL cut Ur Oxycodone Screen Urine Methadone Screen Ur Barbiturates Screen U Tricyclic Antidepress Ur Phencyclidine Scrn Ur Amphetamines Screen U Methamphetamines Scrn Ur MDMA Scrn (Ecstasy) U Benzodiazepines Scrn Urine Cocaine Screen U Marijuana (THC) Screen Ethyl Alcohol A.calcoaceticus-baumannii cmplx PCR Chlamy pneumoniae PCR Adenovirus (PCR) Bacteroides fragilis B. pertussis DNA (PCR) B.parapertussis DNA PCR Meaghan albicans (PCR) Meaghan auris (PCR) C. glabrata (PCR) C. krusei (PCR) C. parapsilosis (PCR) C. tropicalis (PCR) Coronavirus OC43 (PCR) Coronavirus HKU1 (PCR) Coronavirus 229E (PCR) SARS-CoV-2 (PCR) Coronavirus NL63 (PCR) C. neoform/gattii (PCR) Enterobacterales (PCR) E. cloacae complex PCR Enterococc faecalis PCR Enterococc faecium PCR E. coli (PCR) H. influenzae (PCR) Human Metapneumovir PCR Influenza Type A (PCR) Influenza Type B (PCR) Klebsiella aerogenes (PCR) Klebsiella oxytoca PCR Klebsiella pneumoniae List. monocytogenes PCR M. pneumoniae (PCR) N. meningitidis (PCR) Parainfluenza 1 (PCR) Parainfluenza 2 (PCR) Parainfluenza 3 (PCR) Parainfluenza 4 (PCR) Proteus species (PCR) RSV (PCR) Entero/Rhino (PCR) Salmonella spp. (PCR) Serratia marcescens PCR Staphylococcus sp PCR Staph aureus (PCR) Staph epidermidis (PCR) Staph lugdunensis PCR S. maltophilia (PCR) Streptococcus sp PCR Group A Strep (PCR) Strep agalactiae (PCR) Strep pneumoniae (PCR) P. aeruginosa (PCR) [facility] Medical History (Updated 02/09/23 @ 06:46 by Tom Bennett DO) Depression Family History Mother COVID Father No problems noted. Social History household members: spouse and children Smoking Status: Never smoker Assessment & Plan Assessment & Plan narrative: 1. Subacute bacterial endocarditis, Group A strep -presented with fever, chills, confusion, N/V; neg LP; sev bandemia, elev CRP noted -hx strep throat treatment a month ago -blood cx + GPC; Group A strep on PCR -treat with Vanc and Rocephin 2 gm IV qd, pending final culture results -serial blood cx to ensure clearing of bacteremia -ECHO: no vegetations, likely false neg in setting of bacteremia and recent strep throat -PICC when clears bacteremia -trend bandemia 2. Acute encephalopathy -improving, no evid meningitis, treat bacteremia -cxl brain MRI 3. Acute hyperglycemia -likely stress related, check A1C, insulin sliding scale 4. Left hand pain -neg x-rays, sec to soft tissue trauma, cancelled MRI -Tylenol, hydrocodone prn 5. Hx depression -cont venlafaxine 6. Sev obesity -has outpatient sleep study scheduled Quality VTE Deep Vein Thrombosis/Pulmonary Embolism Present on Admission: No
[2023-02-09] MEDS: HYDROCODONE/ACET 5/325 TABLET 2 TAB PO (15:49)
[2023-02-09] MEDS: HYDROCODONE/ACET 5/325 TABLET 1 TAB PO (23:00)
[2023-02-10] VITALS (11 sets, daily range): BP systolic 121–135; BP diastolic 67–82; PULSE 80–95; RESP 17–40; TEMP 36.3–37.2; O2SAT 92–97
[2023-02-10] MEDS: VANCOMYCIN 1,500 MG/300 ML PIGGYBACK 200 MG IV (00:29)
[2023-02-10] MEDS: SODIUM CHLORIDE 0.9% 1,000 ML 150 ML IV (03:20)
[2023-02-10] MEDS: ACETAMINOPHEN 325 MG TABLET 975 MG PO (03:20)
[2023-02-10 04:45] LABS: Add Manual Diff / Slide Review NO; Basophils Absolute Auto 0 /uL (0-100); Basophils Percent Auto 0.2 % (0-2); Eosinophils Absolute Auto 100 /uL (0-450); Eosinophils Percent Auto 0.8 % (2-4); Hematocrit 36.7 % (41-53); Hemoglobin 12.8 g/dL (13.5-17.5); Lymphocytes Absolute Auto 700 /uL (1100-4500); Lymphocytes Percent Auto 5.8 % (25-40); Mean Corpuscular HGB Conc 34.8 % (30-36); Mean Corpuscular Hemoglobin 29.9 PG (26-34); Mean Corpuscular Volume 85.7 fL (80-100); Monocytes Absolute Auto 1100 /uL (0-900); Monocytes Percent Auto 8.7 % (3-14); Neutrophils Absolute Auto 10600 /uL (1500-7000); Neutrophils Percent Auto 84.5 % (50-75); Platelet Count 99 X10^3/uL (150-400); Red Blood Cell Count 4.28 X10^6/uL (4.5-5.9); Red Cell Distribution Width 13.7 % (11.6-14.8); White Blood Cell Count 12.6 X10^3/uL (4.5-11.0)
[2023-02-10 04:56] LABS: Magnesium 2.1 mg/dL (1.6-2.3)
[2023-02-10 04:57] LABS: Alanine Aminotransferase 29 IU/L (<50); Albumin Globulin Ratio 0.9 (1.0-2.8); Alkaline Phosphatase 51 U/L (38-126); Aspartate Aminotransferase 32 IU/L (17-59); BUN Creatinine Ratio 24.2 (6-22); Bilirubin Total 0.6 mg/dL (0.2-1.3); Blood Urea Nitrogen 15 mg/dL (9-20); Calcium 7.6 mg/dL (8.4-10.2); Carbon Dioxide 24 mmol/L (22-32); Chloride 102 mmol/L (98-107); Estimated Glomerular Filt Rate > 60 mL/min (>60); Globulin 3.4 g/dL (1.7-4.1); Glucose 126 mg/dL (70-100); HEMOLYSIS 15 (0-50); Potassium 3.5 mmol/L (3.4-5.1); Sodium 132 mmol/L (137-145); Total Protein 6.4 g/dL (6.3-8.2)
[2023-02-10] MEDS: cefTRIAXone 2,000 MG in SODIUM CHLORIDE 0.9% 100 ML 200 MG IV (05:00)
[2023-02-10 07:47] LABS: x Labcorp Estim. Avg Glu (eAG) 123 mg/dL (.); x Labcorp Hemoglobin A1c 5.9 % (4.8-5.6)
[2023-02-10] MEDS: POTASSIUM CHLORIDE 20 MEQ TAB 40 MEQ PO (09:04)
[2023-02-10] MEDS: VENLAFAXINE ER 75 MG CAP 150 MG PO (09:04)
[2023-02-10] MEDS: ENOXAPARIN 40 MG/0.4 ML SYRINGE SUBCUT (09:04)
[2023-02-10] MEDS: HYDROCODONE/ACET 5/325 TABLET 1 TAB PO (11:46)
[2023-02-10] MEDS: HYDROMORPHONE 2 MG TABLET PO (12:09)
--- NOTE | 2023-02-10 14:42 | DI.RAD.S_ITS ---
PROCEDURE: XR ANKLE RT MIN 3V INDICATIONS: swollen, painful ankle, bacteremia TECHNIQUE: 3views of the ankle were acquired. COMPARISON: None. FINDINGS: Bones: No fractures or dislocations. Ankle mortise is normally aligned. No suspicious bony lesions. Soft tissues: No tibiotalar joint effusion. Achilles insertional enthesophyte. Soft tissue prominence overlying the dorsal aspect of the foot extending into the ankle. IMPRESSION: Soft tissue swelling without acute osseous abnormality. Dictated by: Elpidio aBrron D.O. on 02/10/2023 at 14:04 Approved by: Elpidio Barron D.O. on 02/10/2023 at 14:06
--- NOTE | 2023-02-10 14:43 | PM.CN ---
History of Present Illness Consult details Date Patient Seen: 02/10/23 Time Patient Seen: 14:43 Chief complaint: fever/vomiting/confusion Reason for consult: Left hand, right ankle pain, strep a bacteremia Requesting provider: Ginger Bryant Narrative: Patient is a 47-year-old male visiting from [place] with a past medical history of depression and obesity. He is a remote history of strep throat recently, about 5 weeks ago. He is out on the [facility] visiting his parents which are from here. His is present with him today. Believes he may had a little sore throat a week ago Saturday right before he flew west but he did not think much of it. He skied pretty hard Saturday and Saturday of the week and then on driving back from [place] he started to feel ill. He had a fever on and then by Saturday he was having difficulty mentating and staggering and bumping into puente not eating. He was admitted for sepsis yesterday morning. He was found to have group a strep bacteremia and reports several falls. I (orthopedic surgery) Was called by the hospitalist service this afternoon. The hospitalist notes that the patient is scheduled for transfer to [facility] for ongoing care but at the request of the accepting hospitalist [facility] they asked for orthopedic evaluation prior to transfer. Per report patient had some left hand pain at presentation to the ER. This morning there was report of some right ankle pain as well. At the time of this consult there no ankle x-rays available yet but there is a hand x-ray. The patient has been on IV Rocephin. Per report he will be transferred to the tertiary center for TARSHA and Infectious Disease and ongoing treatment. Currently elevated CRP 47 white cell count 12.9, he has thrombocytopenia platelets 99 and hyponatremia Per notes in the chart that is presenting symptoms were fevers confusion falls difficulty with coordination. He believes he may have twisted his ankle. But there was concern in the setting of his bacteremia that perhaps this was an early septic arthritis Meds Home Medications and Allergies Home Medications Medication Instructions Recorded Confirmed Type venlafaxine 150 mg 150 mg PO DAILY 02/09/23 02/09/23 History capsule,extended release 24 hr Allergies Allergy/AdvReac Type Severity Reaction Status Date / Time bupropion [From Wellbutrin] AdvReac Depression Verified 02/09/23 08:49 Penicillins AdvReac Nightmare Verified 02/09/23 08:54 Review of Systems Review of Systems Narrative: No current fevers or chills. Endorses hand pain bothered him the most on admission and right ankle and foot pain that is really developed over the last 24 hours. States he walked around with no problem as he came into the hospital had much more pain this morning. No difficulty breathing. No shortness of breath. Positive confusion, malaise, falls, fatigue, poor appetite, left hand swelling, left wrist pain, body aches,, right foot and ankle pain and swelling Exam Vital Signs (past 8 hours): - 02/10/23 09:44 02/10/23 13:27 Temperature 98.9 F 98 F Pulse Rate 88 80 Respiratory Rate 18 17 Blood Pressure 127/82 130/77 Pulse Oximetry 93 94 Oxygen Flow Rate 3 0 Oxygen Delivery Method Nasal Cannula Oxygen Flow Rate 0 Narrative Exam Narrative: Alert oriented male in no acute distress sitting in bed in the ICU. at bedside. Answers all questions appropriately. Normocephalic atraumatic Respiratory unlabored on room air Heart regular rate Musculoskeletal exam. Right-hand dominant. Full range of motion of the right hand no swelling or pain. Full range of motion of the wrist and digits and elbow. Left hand demonstrates global swelling of the hand and digits no focal fluctuance. Decreased wrist range of motion due to pain. No fluctuance or focal swelling at the wrist. No erythema over the hand or wrist. More just global swelling. There are 2 areas along the ulnar distal forearm that are circular areas of redness that are demarcated on the skin and marked with a skin marker demonstrates finger flexion extension and interosseous function with decreased flexion and extension of all digits on the left hand secondary to pain swelling. No focal joint swelling or targeted site. No obvious focal septic arthritis no signs of flexor tenosynovitis. Palpable radial pulse brisk capillary refill grossly intact sensation to light touch median radial ulnar Lower extremity examination. Left lower extremity normal range of motion no swelling. Painless dorsiflexion plantar flexion. Palpable pulses Right lower extremity demonstrates focal swelling over the lateral dorsum of the foot and midfoot into the lateral ankle. No specific tenderness to palpation along the medial or lateral malleoli. Achilles is palpable and intact. Demonstrates dorsiflexion plantar flexion of the ankle some increased pain with this but good range of motion. Erythema over the dorsal lateral midfoot to the lateral ankle. No erythema along the medial ankle. Sensation grossly intact. Brisk capillary refill. Objective Imaging Left hand x-ray: My impression: Three views AP, oblique, lateral left hand demonstrates mild 3rd MCP arthritis small osteophytes no other abnormalities demonstrated Radiologist's impression: No acute osseous abnormality. ? Degenerative changes of the 3rd metacarpophalangeal joint which may be posttraumatic given lack of other findings throughout the hand. ? No significant discrepancy for preliminary report. ? ? Dictated by: Elpidio Barron D.O. on 02/09/2023 at 7:37 Right ankle x-ray three views: My impression: Three views of the right ankle nonweightbearing AP oblique and lateral demonstrate No fractures or dislocation. Nonweightbearing x-rays. Soft tissue swelling midfoot anterior ankle Radiologist's impression: IMPRESSION:? ? Soft tissue swelling without acute osseous abnormality. ? Dictated by: Elpidio Barron D.O. on 02/10/2023 at 14:04 ? Labs 02/10/23 04:31 02/10/23 04:31 Labs: Laboratory Results - last 24 hr 02/09/23 02/10/23 02/10/23 02:35 04:31 04:31 WBC 12.6 H RBC 4.28 L Hgb 12.8 L Hct 36.7 L MCV 85.7 MCH 29.9 MCHC 34.8 RDW 13.7 Plt Count 99 L Neut % (Auto) 84.5 H Lymph % (Auto) 5.8 L [place] % (Auto) 8.7 Eos % (Auto) 0.8 L Baso % (Auto) 0.2 Neut # (Auto) 34377 H Lymph # (Auto) 700 L [place] # (Auto) 1100 H Eos # (Auto) 100 Baso # (Auto) 0 Sodium 132 L Potassium 3.5 Chloride 102 Carbon Dioxide 24 BUN 15 Creatinine 0.62 L Estimated GFR > 60 BUN/Creatinine Ratio 24.2 H Glucose 126 H Hgb A1c (Ref Lab) 5.9 H Estim Average Glucose 123 Calcium 7.6 L Magnesium Total Bilirubin 0.6 AST 32 ALT 29 Alkaline Phosphatase 51 Total Protein 6.4 Albumin 3.0 L Globulin 3.4 Albumin/Globulin Ratio 0.9 L 02/10/23 04:31 WBC RBC Hgb Hct MCV MCH MCHC RDW Plt Count Neut % (Auto) Lymph % (Auto) [place] % (Auto) Eos % (Auto) Baso % (Auto) Neut # (Auto) Lymph # (Auto) [place] # (Auto) Eos # (Auto) Baso # (Auto) Sodium Potassium Chloride Carbon Dioxide BUN Creatinine Estimated GFR BUN/Creatinine Ratio Glucose Hgb A1c (Ref Lab) Estim Average Glucose Calcium Magnesium 2.1 Total Bilirubin AST ALT Alkaline Phosphatase Total Protein Albumin Globulin [facility]in/Globulin [facility] Medical History Depression Family History Mother COVID Father No problems noted. Social History marital status: household members: spouse and children Tobacco & Substance Use Smoking Status: Never smoker Assessment & Plan Assessment and plan (1) Sepsis: Status: Acute (2) Swelling of left hand: Status: Acute (3) Swelling of right foot: Status: Acute (4) Swelling of right ankle joint: Status: Acute Assessment & Plan narrative: 1.strep bacteremia management for primary team currently on Rocephin 2. Right ankle and foot swelling erythema. There is some swelling around the ankle but more so onto the dorsal foot. Possible ankle effusion. Discussed swelling pattern not specific for the ankle joint more soft tissues over the dorsum of the foot but with pain on dorsiflexion plantar flexion consider aspiration tibiotalar joint rule out septic arthritis. Risks and benefits of this discussed with the patient. They would like to proceed today. The procedure was performed. This was a dry tap it was performed from the medial approach where there was no erythema. Low suspicion for septic ankle arthritis. The swelling and erythema over the dorsum of the foot to the lateral ankle appears more superficial. Discussed I have seen in the past for someone with bacteremia the Brown subcutaneous abscess in the area there is no sign of abscess yet. This is more consistent with a cellulitis. Recommend continued clinical observation and if any worsening consider MRI with and without contrast to evaluate for evolving abscess. 3. Left hand swelling. No focal joints swelling more global swelling picture. Nothing specific for focal septic arthritis on this side. He does have some focal erythematous areas on his distal forearm were consistent with the lymphangitis, cellulitis picture. Recommend elevation above the heart level continue treatment of his bacteremia possible additional antibiotics and follow for worsening clinically. Continue to work on finger range of motion. Again for worsening can consider MRI with and without contrast but this area of swelling appears less focal than in the right foot. Of note they did intervally remove the ring that was apparent and the x-rays. Patient will be transferring to [facility] division of [facility] recommend orthopedic follow-up evaluation at that location as appropriate for ongoing symptoms. COVID-19 COVID-19 status: Negative Time Spent With Patient Time with patient: 30 to 49 minutes with 50% spent counseling/coordinating care
[2023-02-10] MEDS: LIDOCAINE 1% (PF) 5 ML 4 ML INJ (16:05)
--- NOTE | 2023-02-10 16:15 | PM.PROC.1 ---
Procedures Date/Time Date of procedure: 02/10/23 Time of procedure: 16:16 General Procedure description: Aspiration right ankle joint for rule out septic arthritis Complications: none Joint Aspiration/Injection Time out performed: Yes Side of body: right Joint aspirated: ankle Ultrasound guidance: No Skin prep: Chlorhexidine Local anesthesia used: lidocaine 1% Amount of anesthesia used (ml): 4 Needle size used: 18G Total fluid obtained (ml): 0 Complications: unable to obtain fluid Additional comments: Patient tolerated the procedure well. Procedure was a dry tap of right ankle. Risks and benefits of the procedure were discussed with the patient in detail. He elected to proceed. The right ankle was then prepped and draped in the standard sterile fashion. Skin was cleaned with chlorhexidine. Using a 22 gauge needle 4 cc of 1% lidocaine was used as local anesthesia then under standard sterile technique an 18 gauge needle was used through the standard anteromedial approach to the ankle to aspirate the joint. This was a dry tap with no return of fluid. Needle was then removed and a Band-Aid placed. Patient tolerated the procedure well. Of note the location of the aspiration site was well medial to the erythema laterally
--- NOTE | 2023-02-10 19:23 | P.DS_ITS ---
History of Present Illness History of Present Illness Chief complaint: fever/vomiting/confusion Narrative: Per history and physical: Luis Davison is a 47-year-old male with a history of depression who takes Zolof t, denies any other medical history, medications, or surgeries who was brought into the ED by his .? The patient and his are visiting from [place] for the past 2 or 3 days the patient has had worsening confusion frustration agitation balance and coordination issues falling injuring his left hand, difficulty answering questions with severe fever, nausea, vomiting, diarrhea.? Patient presented to the ED febrile temp 101.8, BP 139/77, tachycardic heart rates up to 126, tachypneic respiratory rates 20-24, satting 95 96% on room air.? Patient met severe sepsis SIRS criteria. ?On admit patient denies chest pain, shortness in breath, headache, changes in vision, difficulty swallowing, speech impairment, weakness, numbness, tingling, difficulty with ambulation, recent falls, head injury, LOC, fever, body aches, chills, cough, recent exposure to illness, abdominal pain, nausea, vomiting, urinary incontinence/retention, dysuria, frequency, urgency, hematuria, bowel changes, constipation, incontinence, melena, rashes, recent changes to medication, travel, illness, injury, or trauma.? Denies history of skin infections, exposure to insect or animal bites.? Denies recreational substa nces.? Patient denies any personal or family history rare unusual infections disease process, genetic disorders, or unexplained illnesses. Admit exam was completed in the ED:? The patient became extremely frustrated had difficulty answering questions, appeared cognitively impaired, and refused to c ontinue further with questions in evaluation.? Admit temp 104.1?, BP 123/85, HR 111, RR 22, O2 saturation 96% on room air.? Patient is hemodynamically stable in no respiratory distress but is quite agitated by his left hand pain.? The patient verbalized that the spinal tap was causing no discomfort but that his left hand pain was killing him.? WBC 14.3, neutrophils 13,156, PLT 125, hyponatremia sodium 126, chloride 88, BUN 24, glucose 183, lactate 3.0.? Tox screen negative, respiratory panel negative, GI panel pending, LP results pending, chest x-ray negative, left hand x-ray negative, EKG sinus tachycardic rhythm.? Patient being admitted to the ICU with severe sepsis with lactic acidosis of unknown etiology, encephalopathy, ground level fall, left hand injury, hyponatremia. Discharge Providers Provider Date of admission: 02/09/23 07:12 Discharge Date: 02/10/23 Consults: 02/09/23 05:48 Consult to Dietitian, Adult Routine Comment: Reason For Exam: BMI 41.1 Discharge provider: Ginger Bryant MD Summary Hospital Course Discharge Diagnosis: 1. High-grade strep a bacteremia, 4/4 bottles 2. Polyarthralgia/arthritis, possible evolving septic arthritis (versus inflammatory polyarthritis) involving left index finger PIP and MCP joints, left 5th PIP and MCP joints, left wrist, left forearm soft tissue lesion felt to be infectious, and right ankle joint 3. Sepsis, resolved 4. Acute metabolic encephalopathy, resolved 5. Left hand and right ankle pain as noted above 6. Class 3 obesity with BMI of 42.4 7. Possible prediabetic state 8. Mild normocytic anemia 9. Thrombocytopenia, mild, likely sepsis induced 10. Hyponatremia, improving Hospital Course: Patient is from [place] and was visiting and on vacation with his family. He noted approximately 3 weeks or so ago he had a strep pharyngitis that was fully treated. It did improve but he noted return of a sore throat a week ago. He began developing worsening, agitation, fever, nausea, vomiting, and diarrhea in the 2-3 days prior to admission. Upon arrival to the hospital he met severe sepsis criteria but the etiology was unknown. He underwent examination inclusive of labs, chest x-ray, hand x-ray, lumbar puncture and urine and blood cultures. Initial white blood cell count was 14.3. He had a 32% bandemia as well. Sedimentation rate was 31, CRP 42.9. Urine culture was negative. As for the chest x-ray and hand x-ray. Blood cultures grew group a strep on the day following admission with 4/4 cultures positive. His sepsis physiology improved and he was downgraded from initial ICU to acute care. He was noted to have ongoing mild confusion and fever on the day following admission. Also was complaining of left hand pain. Examination from the hospitalist on that day revealed no wrist or hand redness or swelling. There was no focal tenderness. There was what was felt to be a macular spots on his left forearm. Today, patient was complaining of significant right foot and ankle pain. He reported it was inhibiting his ability to walk. He also reported worsening left hand pain and swelling as well as worsening of the lesion on his left forearm. He and his expressed concern that those symptoms were getting worse although overall he was clinically improving. On exam, there was erythema and swelling about his right lateral malleolus and mortise. There was pain with flexion- extension of his right foot. No obvious abscess or wound. He also a focal lesion to the mid forearm that appears to have minimally extended outside the previously demarcated line. He had significant discomfort with flexion- extension of his left wrist but no bogginess or effusion noted. His left 5th MCP and PIP were noted to have erythema and swelling and tenderness with flexion extension. There is also erythema, generalized swelling and tenderness with flexion and extension of his index finger MCP and PIP joints. Due to concerns for possible evolving septic arthritis versus inflammatory polyarthritis as well as likely need for a TARSHA (TTE did not reveal any obvious vegetation but is limited by his BMI), transfer to a higher level of care was requested. Multiple referrals were made and ultimately he was accepted to the [facility] for further care. He has been treated with Rocephin 2 g IV Q 24 hours. This will be continued. He was slated for follow-up blood cultures on 02/11/2023 for 48 hour culture results. Patient is discharging via S ambulance. A total of 90 minutes were spent in care and discharge coordination/transfer for this patient today Status at Discharge Cognitive/behavioral status at discharge: at baseline, oriented Functional status at discharge: independent ambulation Overall status at discharge: patient is not back to baseline Exam Vital Signs (past 8 hours): - 02/10/23 13:27 02/10/23 16:00 Temperature 98 F 98.5 F Pulse Rate 80 80 Respiratory Rate 17 17 Blood Pressure 130/77 135/67 Pulse Oximetry 94 97 Oxygen Flow Rate 0 0 Oxygen Delivery Method Nasal Cannula Oxygen Flow Rate 0 Narrative Exam Narrative: GEN: Very pleasant adult male, Alert and oriented x 3, NAD HEENT:NC, Face symmetric CHEST: Respiratory excursions symmetric, CTAB CV: RRR, no M/R/G ABD: Soft, NT/ND, BT present in all 4 quadrants, body habitus limits exam EXTR: warm, well perfused, please see discussion of his joint abnormalities of his left hand and right ankle above SKIN: warm and dry, there is some mottling noted to the bilateral flank region which is nontender, no obvious lesions NEURO: Alert and oriented x 3, nonfocal Objective Labs 02/10/23 04:31 02/10/23 04:31 Labs: Laboratory Results - last 24 hr 02/09/23 02/10/23 02/10/23 02:35 04:31 04:31 WBC 12.6 H RBC 4.28 L Hgb 12.8 L Hct 36.7 L MCV 85.7 MCH 29.9 MCHC 34.8 RDW 13.7 Plt Count 99 L Neut % (Auto) 84.5 H Lymph % (Auto) 5.8 L [place] % (Auto) 8.7 Eos % (Auto) 0.8 L Baso % (Auto) 0.2 Neut # (Auto) 78072 H Lymph # (Auto) 700 L [place] # (Auto) 1100 H Eos # (Auto) 100 Baso # (Auto) 0 Sodium 132 L Potassium 3.5 Chloride 102 Carbon Dioxide 24 BUN 15 Creatinine 0.62 L Estimated GFR > 60 BUN/Creatinine Ratio 24.2 H Glucose 126 H Hgb A1c (Ref Lab) 5.9 H Estim Average Glucose 123 Calcium 7.6 L Magnesium Total Bilirubin 0.6 AST 32 ALT 29 Alkaline Phosphatase 51 Total Protein 6.4 Albumin 3.0 L Globulin 3.4 Albumin/Globulin Ratio 0.9 L 02/10/23 04:31 WBC RBC Hgb Hct MCV MCH MCHC RDW Plt Count Neut % (Auto) Lymph % (Auto) [place] % (Auto) Eos % (Auto) Baso % (Auto) Neut # (Auto) Lymph # (Auto) [place] # (Auto) Eos # (Auto) Baso # (Auto) Sodium Potassium Chloride Carbon Dioxide BUN Creatinine Estimated GFR BUN/Creatinine Ratio Glucose Hgb A1c (Ref Lab) Estim Average Glucose Calcium Magnesium 2.1 Total Bilirubin AST ALT Alkaline Phosphatase Total Protein Albumin Globulin Albumin/Globulin Ratio [facility] Medical History Depression Family History Mother COVID Father No problems noted. Social History marital status: household members: spouse and children Smoking Status: Never smoker Discharge Plan Discharge Plan Patient Disposition: [facility] Under care of provider: Hospitalist service, Orthopedic surgery, cardiology for TARSHA Discharge Location: [facility] Provider Discharge Comment: BLS transfer Discharge Health Status Multidrug resistant organism: No MDRO Precautions: Ten Sleep Diet/Activity/Treatments Diet: Regular Liquid consistency: Normal/Thin Food texture: Regular Activity: As tolerated Oxygen: N/A Quality VTE Deep Vein Thrombosis/Pulmonary Embolism Present on Admission: No
== END 2023-02-10 19:23 | disposition short-term general hospital (02) | DRG 871 ==
LOC: ED 06:46 → AC 07:14 → ICU 09:24
PROVIDERS: Admitting Provider Nurse Practitioner Family; Emergency Provider Emergency Medicine; Referring Provider Emergency Medicine; Visit Provider Nurse Practitioner Family
DX: A41.9 Sepsis, unspecified organism (principal); G93.41 Metabolic encephalopathy; I33.0 Acute and subacute infective endocarditis; E87.1 Hypo-osmolality and hyponatremia; Z68.41 Body mass index [BMI] 40.0-44.9, adult; M00.9 Pyogenic arthritis, unspecified; B95.0 Streptococcus, group A, as the cause of diseases classified elsewhere; F32.A Depression, unspecified; E66.01 Morbid (severe) obesity due to excess calories; M25.471 Effusion, right ankle; M06.4 Inflammatory polyarthropathy; R73.03 Prediabetes; D69.6 Thrombocytopenia, unspecified; Z20.822 Contact with and (suspected) exposure to COVID-19
CPT/HCPCS: 36415; 71045; 73130; 73610; 80053; 80305; 80320; 81003; 81015; 82945; 82962; 83036; 83605; 83735; 84157; 85007; 85025; 85610; 85651; 86140; 87040; 87070; 87086; 87154; 87205; 87633; 87797; 87798; 89051; 93306; 96365; 96367; 96375; 99284; 99285; J0696; J1650; J1815; J1885; J2405; J2543